=== PATIENT | male | born 1980 | race Caucasian/White ===

== ENCOUNTER 2018-07-22 13:58 | Emergency (ER) | payer SELFPAY ==
[2018-07-22] MEDS ORDERED: ONDANSETRON 4 MG/2 ML VIAL ONE (14:24)
[2018-07-22] MEDS ORDERED: NA CHLORIDE 0.9% 1,000 ML ONE (14:24)
[2018-07-22] MEDS ORDERED: PROMETHAZINE 25 MG/ML VIAL ONE (14:24)
[2018-07-22] MEDS ORDERED: FAMOTIDINE 20 MG/2 ML VIAL IV ONE (14:45)
[2018-07-22] MEDS ORDERED: METOCLOPRAMIDE 10 MG/2mL INJ ONE (14:52)
--- NOTE | 2018-07-22 14:56 | RAD REPORT ---
EXAM DESCRIPTION: CT - Head Brain Wo Cont - 07/22/2018 2:29 pm CLINICAL HISTORY: Headache, numbness and tingling, blurred vision COMPARISON: None. TECHNIQUE: Axial 5 mm thick images of the head were obtained without IV contrast. All CT scans are performed using dose optimization technique as appropriate and may include automated exposure control or mA/KV adjustment according to patient size. FINDINGS: Approximately 3 centimeter partially calcified midline mass is present along the cribrifor m plate. No acute infarction changes seen. There is a significant edema pattern in the bilateral sub frontal lobe white matter. Edema signal extends posteriorly towards the cavernous sinus and suprasell ar region midline and right. There is generalized mass effect on the basilar cisterns. Bal matter - white matter is generally preserved though the brain generally has a edematous appearance. No ventric ulomegaly. No acute hemorrhage. No midline shift. Mastoid air cells and visualized portions of the paranasal sinuses are clear. No bone destructive changes seen. IMPRESSION: There is a 3 centimeter partially calcified mass along the cribriform plate. 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 A more aggressive process is not excluded. There is significant edema in the subfrontal white matter with edema and mass effect extending to the cavernous sinus and suprasellar region. Overall mild edema appearance to the brain parenchyma with poorly defined basilar cisterns.
[2018-07-22] MEDS ORDERED: DEXAMETHASONE 10 MG/ML VIAL ONE (15:09)
[2018-07-22] MEDS ORDERED: FENTANYL CITR 100 MCG/2 ML ONE (15:10)
[2018-07-22 15:24] LABS: Protime INR 0.97
--- NOTE | 2018-07-22 15:39 | EDPHYS ---
Physician Documentation [facility] Name: Sammy Ibarra Age: 37 yrs Sex: Male : 1980 Arrival Date: 07/22/2018 Time: 14:07 Bed 26 Private MD: ED Physician Arik Yang HPI: 07/22 14:15 This 37 yrs old Male presents to ER via EMS with complaints of Headache. cp 14:15 The patient complains of pain to the top of head and forehead. The patient describes cp the headache as waxing and waning. Onset: The symptoms/episode began/occurred this morning, at 10:00. 14:15 Associated signs and symptoms: Pertinent positives: paresthesias, blurred vision, cp Pertinent negatives: altered mental status, fever, neck stiffness, vision loss, weakness. Severity of symptoms: in the emergency department the pain has improved, mildly. 14:15 Headache History: Denies prior headaches. cp Historical: - Allergies: 14:12 No Known Allergies; kr2 - Home Meds: 14:12 None [Active]; kr2 - PMHx: 14:12 None; kr2 - PSHx: 14:12 None; kr2 - Immunization history:: Adult Immunizations unknown. - Social history:: Smoking status: Patient uses tobacco products, denies chronic smoking, but will smoke occasionally. - Ebola Screening: : No symptoms or risks identified at this time. ROS: 14:20 Constitutional: Negative for body aches, chills, fever, poor PO intake. cp 14:20 ENT: Negative for injury, pain, and discharge. cp 14:20 Eyes: Positive for blurry vision, Negative for pain, vision loss. 14:20 Neck: Negative for pain with movement, pain at rest, stiffness, swollen nodes. 14:20 Cardiovascular: Negative for chest pain, palpitations. 14:20 Respiratory: Negative for cough, shortness of breath, wheezing. 14:20 Abdomen/GI: Positive for nausea, vomiting, Negative for abdominal pain, diarrhea, constipation, black/tarry stool, rectal bleeding. 14:20 : Negative for urinary symptoms, difficulty urinating, bladder incontinence. 14:20 Skin: Negative for cellulitis, rash. 14:20 Neuro: Positive for headache, numbness, of the right arm and right leg, Negative for altered mental status, gait disturbance, seizure activity, weakness. 14:20 All other systems are negative. Exam: 14:25 Constitutional: The patient appears in no acute distress, alert, awake, cp non-diaphoretic, well developed, well nourished, uncomfortable. 14:25 Head/Face: Normocephalic, atraumatic. Eyes: Pupils equal round and reactive to light, cp extra-ocular motions intact. Lids and lashes normal. Conjunctiva and sclera are non-icteric and not injected. Cornea within normal limits. Periorbital areas with no swelling, redness, or edema. ENT: Nares patent. No nasal discharge, no septal abnormalities noted. Tympanic membranes are normal and external auditory canals are clear. Oropharynx with no redness, swelling, or masses, exudates, or evidence of obstruction, uvula midline. Mucous membranes moist. Neck: Trachea midline, no thyromegaly or masses palpated, and no cervical lymphadenopathy. Supple, full range of motion without nuchal rigidity, or vertebral point tenderness. No Meningismus. Chest/axilla: Normal chest wall appearance and motion. Nontender with no deformity. No lesions are appreciated. 14:25 Cardiovascular: Rate: bradycardic, Rhythm: regular, Pulses: Pulses are 2+ in right radial artery and left radial artery. Heart sounds: murmur, not appreciated, rub, not appreciated, gallop, not appreciated, Edema: is not appreciated, JVD: is not appreciated. 14:25 Respiratory: the patient does not display signs of respiratory distress, Respirations: normal, no use of accessory muscles, no retractions, no splinting, no tachypnea, labored breathing, is not present, Breath sounds: are clear throughout, no decreased breath sounds, no stridor, no wheezing. 14:25 Abdomen/GI: Inspection: abdomen appears normal, Palpation: abdomen is soft and non-tender, in all quadrants, rebound tenderness, is not appreciated, voluntary guarding, is not appreciated, involuntary guarding, is not appreciated. 14:25 Back: pain, is absent, ROM is 14:25 Skin: cellulitis, is not appreciated, no rash present. 14:25 Neuro: Orientation: to person, place \T\ time. Mentation: lucid, able to follow commands, Cerebellar function: Romberg testing is negative, normal finger to nose testing, Motor: moves all fours, strength is normal, Sensation: no obvious gross deficits. 15:00 ECG was reviewed by the Attending Physician. Vital Signs: 14:05 BP 117 / 71; Pulse 56; Resp 16; Temp 97.8; Pulse Ox 100% on R/A; Weight 86.18 kg; kr2 Height 5 ft. 8 in. (172.72 cm); Pain 6/10; 15:18 BP 117 / 62; Pulse 59; Resp 20; Pulse Ox 100% on R/A; kr2 16:19 BP 102 / 57; Pulse 60; Resp 16; Pulse Ox 99% on R/A; kr2 17:40 BP 120 / 79; Pulse 60; Resp 17; Pulse Ox 98% on R/A; kr2 14:05 Body Mass Index 28.89 (86.18 kg, 172.72 cm) kr2 MDM: 14:10 Patient medically screened. cp 15:35 ED course: Accepted for transfer to [facility] by Dr. Ken. . rn 15:37 Differential diagnosis: cerebral abscess, cluster headache, hypertensive headache, rn intracerebral hemorrhage, migraine, neoplasm, tension headache, vasomotor headache. Data reviewed: vital signs, nurses notes, lab test result(s), radiologic studies, CT scan, and as a result, I will admit patient. Counseling: I had a detailed discussion with the patient and/or guardian regarding: the historical points, exam findings, and any diagnostic results supporting the discharge/admit diagnosis, radiology results, the need to transfer to another facility, for higher level of care, [facility] does not immediately have the required specialist. 07/22 14:09 Order name: Basic Metabolic Panel; Complete Time: 16:29 cp 07/22 16:30 Interpretation: Normal except: NA 135; GLUC 116; CA 8.3. cp 07/22 14:09 Order name: CBC with Diff; Complete Time: 16:29 07/22 16:30 Interpretation: Normal except: WBC 13.5; ANDERSON% 83.4; LYM% 11.9; NEUT A 11.3. cp 07/22 14:09 Order name: Ckmb; Complete Time: 16:29 cp 07/22 14:09 Order name: CPK; Complete Time: 16:29 cp 07/22 14:09 Order name: LFT's; Complete Time: 16:29 cp 07/22 16:30 Interpretation: Reviewed. 07/22 14:09 Order name: Magnesium; Complete Time: 16:29 cp 07/22 16:31 Interpretation: MG 1.9; Reviewed. 07/22 14:09 Order name: PT-INR; Complete Time: 15:36 cp 07/22 14:09 Order name: Ptt, Activated; Complete Time: 15:36 cp 07/22 14:09 Order name: Troponin (emerg Dept Use Only); Complete Time: 16:29 cp 07/22 16:30 Interpretation: TROPED 0.03; Reviewed. 07/22 14:09 Order name: CT Head Brain wo Cont; Complete Time: 15:03 cp 07/22 15:25 Order name: Glucose, Ancillary Testing; Complete Time: 15:28 EDMS 07/22 14:09 Order name: EKG; Complete Time: 14:10 cp 07/22 14:09 Order name: Cardiac monitoring; Complete Time: 14:29 cp 07/22 14:09 Order name: EKG - Nurse/Tech; Complete Time: 17:46 cp 07/22 14:09 Order name: IV Saline Lock; Complete Time: 14:29 cp 07/22 14:09 Order name: Labs collected and sent; Complete Time: 14:29 cp 07/22 14:09 Order name: O2 Per Protocol; Complete Time: 14:29 cp 07/22 14:09 Order name: O2 Sat Monitoring; Complete Time: 14:30 cp 07/22 14:09 Order name: Urine Dipstick-Ancillary (obtain specimen); Complete Time: 17:45 07/22 15:20 Order name: Labs - recollect needed; Complete Time: 15:21 bd EC:00 Rate is 56 beats/min. Rhythm is regular. WA interval is normal. QRS interval is normal. cp QT interval is normal. T waves are Flattened in lead aVF. Interpreted by me. Reviewed by me. Administered Medications: 14:20 Drug: NS 0.9% 1000 ml Route: IV; Rate: 1 bolus; Site: right antecubital; kr2 16:18 Follow up: Response: No adverse reaction; IV Status: Completed infusion kr2 14:24 Drug: Zofran 4 mg Route: IVP; Site: right antecubital; kr2 15:38 Follow up: Response: No adverse reaction; Nausea is decreased; Vomiting decreased kr2 14:24 Drug: Phenergan 25 mg Route: IVP; Site: right antecubital; kr2 15:38 Follow up: Response: No adverse reaction; Nausea is decreased; Vomiting decreased kr2 14:45 Drug: Pepcid 20 mg Route: IVP; Site: right antecubital; kr2 15:38 Follow up: Response: No adverse reaction; Nausea is decreased; Vomiting decreased kr2 15:12 Drug: Dexamethasone 10 mg Route: IVP; Site: right antecubital; kr2 15:30 Follow up: Response: No adverse reaction kr2 15:12 Drug: fentaNYL (PF) 25 mcg Route: IVP; Site: right antecubital; kr2 15:30 Follow up: Response: No adverse reaction; Pain is decreased kr2 16:00 Drug: Keppra 1000 mg Route: IV; Rate: calculated rate; Site: right antecubital; kr2 16:17 Follow up: Response: No adverse reaction; IV Status: Completed infusion kr2 17:38 Drug: fentaNYL (PF) 25 mcg Route: IVP; Site: right antecubital; kr2 17:44 Follow up: Response: No adverse reaction; Pain is decreased kr2 Point of Care Testing: Blood Glucose: 15:00 Blood Glucose: 98 mg/dL; kr2 Ranges: Critical Glucose Levels:Adult <50 mg/dl or >400 mg/dl <40 mg/dl or >180 mg/dl Disposition: 17:52 Co-signature as Attending Physician, Arik Yang MD. rn Disposition: 07/22/18 15:38 Transfer ordered to [facility]. Diagnosis are Unspecified brain mass, Headache, Paresthesia of skin. - Reason for transfer: Higher level of care. - Accepting physician is Dr. Ken. - Condition is Stable. - Problem is new. - Symptoms have improved. Signatures: Dispatcher [employer] EDMS Alisson Proctor Roman, MD MD rn Page, Corey, PA PA cp Reaves, Karey, RN RN kr2 Corrections: (The following items were deleted from the chart) 16:30 16:30 Normal except: NA 135; GLUC 116. cp cp 17:47 15:38 07/22/2018 15:38 Transfer ordered to [facility]. Diagnosis is kr2 Unspecified brain mass; Headache; Paresthesia of skin. Reason for transfer: Higher level of care. Accepting physician is Dr. Ken. Condition is Stable. Problem is new. Symptoms have improved. rn
--- NOTE | 2018-07-22 15:39 | ER ---
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 Reports this has happened before, approximately 2 months ago. Transition of care: patient was not received from another setting of care. Onset of symptoms was July 22, 2018 at 10:00. Risk Assessment: Do you want to hurt yourself or someone else? Patient reports no desire to harm self or others. Initial Sepsis Screen: Does the patient meet any 2 criteria? No. Patient's initial sepsis screen is negative. Does the patient have a suspected source of infection? No. Patient's initial sepsis screen is negative. Care prior to arrival: None. 14:08 Method Of Arrival: EMS: [facility] kr2 14:08 Acuity: MARCELLA 3 kr2 Triage Assessment: 14:12 Headache History: The patient has had previous headaches and this one is similar to kr2 previous episodes. General: Appears in no apparent distress. comfortable, well developed, well nourished, Behavior is calm, cooperative, appropriate for age. Pain: Complains of pain in entire head Pain currently is 6 out of 10 on a pain scale. Quality of pain is described as aching, Pain began 1000 today Is continuous, Alleviated by nothing. Aggravated by increased activity, Also complains of nausea. EENT: Nares are clear bilaterally Oral mucosa is moist. Neuro: Level of Consciousness is awake, alert, obeys commands, Oriented to person, place, time, situation, Appropriate for age Health Care Coach are equal bilaterally Moves all extremities. Gait is steady, Speech is normal, Facial symmetry appears normal, Pupils are PERRLA, Intact Reports Episodes of paresthesias and right sided weakness with headache. Cardiovascular: Capillary refill < 3 seconds in bilateral fingers Rhythm is sinus rhythm. Respiratory: Airway is patent Respiratory effort is even, unlabored, Respiratory pattern is regular, symmetrical, Breath sounds are clear bilaterally. GI: Abdomen is flat, non-distended, Bowel sounds present X 4 quads. Reports nausea, vomiting. : Denies burning with urination. Derm: Skin is intact, is healthy with good turgor, Skin is clammy, Skin is pale, Skin temperature is warm. Musculoskeletal: Circulation, motion, and sensation intact. Historical: - Allergies: 14:12 No Known Allergies; kr2 - Home Meds: 14:12 None [Active]; kr2 - PMHx: 14:12 None; kr2 - PSHx: 14:12 None; kr2 - Immunization history:: Adult Immunizations unknown. - Social history:: Smoking status: Patient uses tobacco products, denies chronic smoking, but will smoke occasionally. - Ebola Screening: : No symptoms or risks identified at this time. Screenin:26 Abuse screen: Denies threats or abuse. Denies injuries from another. Nutritional kr2 screening: No deficits noted. Tuberculosis screening: No symptoms or risk factors identified. Fall Risk None identified. Assessment: 14:08 General: See triage assessment. Pain: Complains of pain in See triage assessment. kr2 15:19 Reassessment: Patient appears in no apparent distress at this time. Patient and/or kr2 family updated on plan of care and expected duration. Pain level reassessed. Patient is alert, oriented x 3, equal unlabored respirations, skin warm/dry/pink. Patient's mother and coworker at bedside Patient states feeling better. 16:18 Reassessment: Patient appears in no apparent distress at this time. Patient and/or kr2 family updated on plan of care and expected duration. Pain level reassessed. Patient is alert, oriented x 3, equal unlabored respirations, skin warm/dry/pink. Patient states feeling better. Patient states symptoms have improved. 16:40 Reassessment: Report called [facility] kr[facility]. 17:39 Reassessment: Patient appears in no apparent distress at this time. Patient and/or kr2 family updated on plan of care and expected duration. Pain level reassessed. Patient is alert, oriented x 3, equal unlabored respirations, skin warm/dry/pink. Patient complains of headache pain 6/10. Given Fentanyl as ordered, see MAR. Report given to [facility] for transport to receiving facility. Vital Signs: 14:05 BP 117 / 71; Pulse 56; Resp 16; Temp 97.8; Pulse Ox 100% on R/A; Weight 86.18 kg; kr2 Height 5 ft. 8 in. (172.72 cm); Pain 6/10; 15:18 BP 117 / 62; Pulse 59; Resp 20; Pulse Ox 100% on R/A; kr2 16:19 BP 102 / 57; Pulse 60; Resp 16; Pulse Ox 99% on R/A; kr2 17:40 BP 120 / 79; Pulse 60; Resp 17; Pulse Ox 98% on R/A; kr2 14:05 Body Mass Index 28.89 (86.18 kg, 172.72 cm) kr2 ED Course: 14:07 Patient arrived in ED. kr2 14:08 Erasto Vasquez PA is PHCP. cp 14:08 Arik Yang MD is Attending Physician. cp 14:08 Arm band placed on right wrist. kr2 14:08 Patient has correct armband on for positive identification. Bed in low position. Call kr2 light in reach. Side rails up X2. Adult w/ patient. accredited farm manager on. Pulse ox on. NIBP on. Lights dimmed. Head of bed elevated. 14:11 Triage completed. kr2 14:24 Abida Black, RN is Primary Nurse. kr2 14:30 CT Head Brain wo Cont In Process Unspecified. EDMS 14:59 EKG done, by vascular ultrasound technician. reviewed by Erasto VYAS. sm3 15:10 Inserted saline lock: 20 gauge in right antecubital area, using aseptic technique. kr2 Blood collected. 17:42 No provider procedures requiring assistance completed. Patient transferred, IV remains kr2 in place. Administered Medications: 14:20 Drug: NS 0.9% 1000 ml Route: IV; Rate: 1 bolus; Site: right antecubital; kr2 16:18 Follow up: Response: No adverse reaction; IV Status: Completed infusion kr2 14:24 Drug: Zofran 4 mg Route: IVP; Site: right antecubital; kr2 15:38 Follow up: Response: No adverse reaction; Nausea is decreased; Vomiting decreased kr2 14:24 Drug: Phenergan 25 mg Route: IVP; Site: right antecubital; kr2 15:38 Follow up: Response: No adverse reaction; Nausea is decreased; Vomiting decreased kr2 14:45 Drug: Pepcid 20 mg Route: IVP; Site: right antecubital; kr2 15:38 Follow up: Response: No adverse reaction; Nausea is decreased; Vomiting decreased kr2 15:12 Drug: Dexamethasone 10 mg Route: IVP; Site: right antecubital; kr2 15:30 Follow up: Response: No adverse reaction kr2 15:12 Drug: fentaNYL (PF) 25 mcg Route: IVP; Site: right antecubital; kr2 15:30 Follow up: Response: No adverse reaction; Pain is decreased kr2 16:00 Drug: Keppra 1000 mg Route: IV; Rate: calculated rate; Site: right antecubital; kr2 16:17 Follow up: Response: No adverse reaction; IV Status: Completed infusion kr2 17:38 Drug: fentaNYL (PF) 25 mcg Route: IVP; Site: right antecubital; kr2 17:44 Follow up: Response: No adverse reaction; Pain is decreased kr2 Point of Care Testing: Blood Glucose: 15:00 Blood Glucose: 98 mg/dL; kr2 Ranges: Outcome: 15:38 ER care complete, transfer ordered by . rn 17:42 Transferred by ground EMS to [facility], Transfer form completed. kr2 17:42 Condition: stable 17:42 Instructed on the need for transfer, Demonstrated understanding of instructions. 17:47 Patient left the ED. kr2 Signatures: Dispatcher [employer] EDMS Arik Yang MD MD rn Page, Corey, PA PA cp Reaves, Karey, RN RN kr2 Aileen Rubio 3 Corrections: (The following items were deleted from the chart) 15:20 15:19 Reassessment: Patient appears in no apparent distress at this time. Patient kr2 and/or family updated on plan of care and expected duration. Pain level reassessed. Patient is alert, oriented x 3, equal unlabored respirations, skin warm/dry/pink. Patient states feeling better. kr2 16:15 16:14 Keppra 1000 mg IV at calculated rate in right antecubital kr2 kr2
[2018-07-22] MEDS ORDERED: levETIRAcetam 1,000 MG in NA CHLORIDE 0.9% 100 ML IV ONE (15:45)
[2018-07-22 15:46] LABS: Absolute Lymphocytes (CBC) 1.6 K/uL (0.7-4.9); Absolute Monocytes 0.6 K/uL (0.1-1.3); Absolute Neutrophil 11.3 K/uL (1.8-8.0); Basophils % 0.1 % (0-1.3); Eosinophils % 0.2 % (0-4.4); Lymphocytes % 11.9 % (15.3-44.8); MCH 30.4 pg (27.0-35.0); MPV 8.1 fL (7.6-11.3); Monocytes % 4.4 % (3.3-12.3); RBC Red Blood Cell Count 4.78 M/uL (4.33-5.43)
[2018-07-22 16:28] LABS: ALT/SGPT 26 U/L (12-78); AST/SGOT 15 U/L (15-37); Albumin 3.8 g/dL (3.4-5.0); Alkaline Phosphatase 61 U/L (45-117); BUN Blood Urea Nitrogen 13 mg/dL (7-18); Bicarbonate 27 mmol/L (21-32); Bilirubin Direct 0.1 mg/dL (0-0.2); Bilirubin Total 0.3 mg/dL (0.2-1.0); CKMB Creatine Kinase MB < 1.0 ng/mL (0.3-3.6); Creatine Phosphokinase 107 U/L (39-308); Glucose Level 116 mg/dL (74-106); Magnesium 1.9 mg/dL (1.8-2.4); Potassium 3.7 mmol/L (3.5-5.1); Protein, Total 7.1 g/dL (6.4-8.2); Sodium Level 135 mmol/L (136-145)
--- NOTE | 2018-07-23 07:22 | EKG ---
Test Date: 2018-07-22 Test Time: 14:50:25 Title Searcher: ALANNA MEASUREMENT RESULTS: Intervals: Rate: 56 MI: 118 QRSD: 88 QT: 460 QTc: 443 [place]: P: 7 MI: 118 QRS: 8 T: -1 INTERPRETIVE STATEMENTS: Sinus bradycardia Otherwise normal ECG No previous ECG available for comparison Electronically Signed On 07-23-18 07:21:16 CDT by Sabino Prasad
== END 2018-07-22 17:47 | disposition short-term general hospital (02) ==
LOC: ER 13:58
DX: G93.9 Disorder of brain, unspecified (principal); R20.2 Paresthesia of skin; Z72.0 Tobacco use
CPT/HCPCS: 36415; 70450; 80048; 80076; 82550; 82553; 82962; 83735; 84484; 85025; 85610; 85730; 93005; 96361; 96365; 96375; 99285; J1100; J1953; J2405; J2550; J2765; J3010; J7030

== ENCOUNTER 2022-02-05 14:50 | Emergency (ER) | payer SELFPAY ==
--- OUTSIDE RECORDS SUMMARY | 2022-02-05 14:54 | XMS REPORT | Continuity of Care Document ---
:1980 Author Organization [facility] t Address [address] [place] [address] Care Team Providers Name Role Phone CARRI BERGER Attending Clinician Unavailable GENESIS BERGER Admitting Clinician Unavailable Problems This patient has no known problems. Allergies, Adverse Reactions, Alerts This patient has no known allergies or adverse reactions. Medications This patient has no known medications. Procedures This patient has no known procedures. Results Test Description Test Time Test Comments Results Result [facility] e Comments MR, BRAIN, WITH 2019-01-16 FINAL REPORT PATIENT ID: 14:30:00 [id number] MRI Brain with and without contrast Clinical History: meningioma Technique: MRI of the brain utilizing axial T1, T2, FLAIR, GRE, DWI, sagittal T1; and postgadolinium axial, sagittal, and coronal T1-weighted images. 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 Focal bilateral anterior inferior frontal lobe encephalomalacia is seen, with resolution of previous fluid and blood products. Previous prominent bifrontal vasogenic edema has resolved. There is no evidence for acute infarct or hemorrhage. There is no hydrocephalus or midline shift. There are no extra-axial fluid collections. The major intracranial flow-voids appear patent. IMPRESSION: Since 08/01/2018, no residual or recurrent neoplasm. Resolution of previous vasogenic edema and post surgical changes. Signed: Siva Dumont MDReport Verified Date/Time: 01/16/2019 14:30:21 Reading Location: [facility] C0[facility] Neuro Reading Room T-LATENCY 2018-08-08 Reason for INTRAOPERATIVE MONITORING SPE, ALL LIMBS 14:25:00 exam:->Brain REPORT Patient Name: Sammy Bang [facility] Surgery Date: 07/31/2018 [place] S/N: [id number] Monitoring began at 08:46 and ended at 15:46 Surgeon: Dc Larsen MD Examining Neurologist: Beck Rodríguez M.D., Samantha Huynh M.D., Chintan Zee M.D. Monitoring Technologist: WILL Flores Procedure: Craniotomy for Meningioma Stimulation Parameters: Median nerves individually stimulated at the wristRate 4.7Hz, Intensity 45 mA, Duration 0.3msPosterior Tibial nerves individually stimulated at the ankleRate 4.7Hz, Intensity 66 mA, Duration 0.3msFilters 30-500Hz, Notch OffMotor strip stimulated anterior to C3 and C4 with alternating polaritiesIntensity 100-500V, Train Number 9, MODE 2-3msFilters 30-2KHz, Notch Off Recording Parameters: CV, CP3, CP4, CPz, and FPz,Transcranial electrical Motor Evoked Potentials recorded from Abductor Pollicis Brevis, Tibialis Anterior and theAdductor Hallucis muscle groups Description : Intraoperative neurophysiological monitoring was performed using a combination of upper and lowerextremity somatosensory evoked potentials (SSEP) and transcranial electrical motor evoked potentials (TceMEP). Aconnection with an examining neurologist was established and maintained throughout the operative procedure by themonitoring technologist. Upper and lower extremity somatosensory evoked potentials were recorded at the subcorticaland cortical levels following median nerve stimulation at the wrist and tibial nerve stimulation at the ankle. All SSEPswere well formed at baselines. TceMEPs were recorded peripherally from the upper and lower extremities followingalternating polarity motor strip stimulation. Upper and lower TcMEPs were clear and reproducible from the beginningof the surgical procedure. Surgeon was informed and acknowledged all changes.At closing, the SSEP waveforms and the TceMEP responses remained consistent with baseline signals. Surgeon wasnotified and acknowledged. Conclusion : These results suggest the absence of untoward, secondary effects on the posterior and anterior columnfunction as a consequence of this surgical procedure. The Surgeon andSupervising Neurophysiologists were notified and acknowledged these findings. Beck Rodríguez M.D., Samantha Huynh M.D., Chintan Zee M.D.D32.9 UE EXAM 2018-08-07 Surgical Pathology Report 13:51:00 Case: [id number] Authorizing Provider: Dc Larsen MD Collected: 07/31/2018 1131 Ordering Location: [facility] PERIOPERATIVE Received: 07/31/2018 1135 SERVICES Pathologist: Marcelo Gordon MD Specimens: A) - Brain, Right, Brain Tumor B) - Brain, Right, Brain Tumor A. BRAIN, CRANIOTOMY - MENINGIOMA, MENINGOTHELIAL (WHO 2016 GRADE I)B.BRAIN, CRANIOTOMY - MENINGIOMA, MENINGOTHELIAL (WHO 2016 GRADE I) Signing Pathologist Direct Phone Line: [phone] y signed by Marcelo Gordon MD on 08/07/2018 at 1:51 PMPreliminary result electronically signed by Tom Berger MD on 08/05/2018 at 1:26 PMNo atypical features are present in either of the two specimens. The MIB-1 proliferation index is variable, but overall is 2.4%.[id number] in tumorA. Brain; B. Right brain tumorA. Received is a 4 mm fragment of mackey costa tissue. Intraoperative cytological and cryostat preparations are made. Tissue is submitted in A1 and A2.B. The specimen is received and consists of multiple ragged fragments of red soft tissue ranging from 0.2 to 1.2 cm. Submitted entirely B1 .CG/pl BRAIN, CRANIOTOMY - TP1: MENINGIOMA FS1 MENINGIOMA REPORTED BY DR. ZOYA BERGER TO ROOM 12 AT 11:44 AMA. Intraoperative cytological imprints show exfoliation of cohesive whorls and sheets of meningothelial cells, so of which has intranuclear cytoplasmic inclusions. No atypical features are seen. Ki67 is performed on A1.B. 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 No atypical features are seen.The following special studies were performed on this case and the interpretation is incorporated in the diagnostic report above:Ki67: pending - to be released in Final ReportThe immunohistochemistry test was developed and its performance characteristics determined by [facility]ology [facility]. It has not been cleared or approved by the U.S. Food and Drug Administration. The FDA has determined that such clearance or approval is not necessary. The test is used for clinical purposes. It should not be regarded as investigational or for research. This laboratory is certified under the Clinical Laboratory Improvement Amendments of 1988 (CLIA-88) as qualified to perform high complexity clinical laboratory testing. CBC W/PLT COUNT & AUTO DIFFERENTIAL 2018-08-02 11:16:00 Test Item Value Reference Range Interpretation Comme nts WHITE BLOOD CELL COUNT (BEAKER) (test code = 775) 17.7 K/ L 3.5- 10.5 H RED BLOOD CELL COUNT (BEAKER) (test code = 761) 4.75 M/ L 4.63-6 .08 HEMOGLOBIN (BEAKER) (test code = 410) 14.3 GM/DL 13.7-17.5 HEMATOCRIT (BEAKER) (test code = 411) 43.0 % 40.1-51.0 MEAN CORPUSCULAR VOLUME (BEAKER) (test code = 753) 90.5 fL 79. 0-92.2 MEAN CORPUSCULAR HEMOGLOBIN (BEAKER) (test code = 751) 30.1 pg 25.7-32.2 MEAN CORPUSCULAR HEMOGLOBIN CONC (BEAKER) (test code = 752) 33.3 GM/DL 32.3-36.5 RED CELL DISTRIBUTION WIDTH (BEAKER) (test code = 412) 12.3 % 11.6-14.4 PLATELET COUNT (BEAKER) (test code = 756) 296 K/CU MM 150-450 MEAN PLATELET VOLUME (BEAKER) (test code = 754) 9.3 fL 9.4-12 .4 L NUCLEATED RED BLOOD CELLS (BEAKER) (test code = 413) 0 /100 WBC 0 -0 [id number] 09:24:00 Test Item Value Reference Range Interpretation Comments SODIUM (BEAKER) (test code = 381) 135 meq/L 136-145 L (CELLAVISION MANUAL DIFF)2018-08-02 07:39:00 Test Item Value Reference Range Interpretation Comments NEUTROPHILS - REL 79 % (CELLAVISION)(BEAKER) (test code = 2816) LYMPHOCYTES - REL 6 % (CELLAVISION)(BEAKER) (test code = 2817) MONOCYTES - REL 6 % (CELLAVISION)(BEAKER) (test code = 2818) METAMYELOCYTES - REL 3 % 0-0 H (CELLAVISION)(BEAKER) (test code = 2821) MYELOCYTES - REL 4 % 0-0 H (CELLAVISION)(BEAKER) (test code = 2822) BANDS - REL (CELLAVISION)(BEAKER) 2 % 0-10 (test code = 2826) NEUTROPHILS - ABS 13.98 K/ul 1.78-5.38 H (CELLAVISION)(BEAKER) (test code = 2830) LYMPHOCYTES - ABS 1.06 K/ul 1.32-3.57 L (CELLAVISION)(BEAKER) (test code = 2831) MONOCYTES - ABS 1.06 K/uL 0.30-0.82 H (CELLAVISION)(BEAKER) (test code = 2832) METAMYELOCYTES - ABS 0.53 K/uL 0.00-0.00 H (CELLAVISION)(BEAKER) (test code = 2836) MYELOCYTES-ABS 0.71 K/uL 0.00-0.00 H (CELLAVISION)(BEAKER) (test code = 2837) BANDS - ABS (CELLAVISION)(BEAKER) 0.35 K/uL 0.00-0.80 (test code = 2840) TOTAL COUNTED (BEAKER) (test code 100 = 1351) RBC MORPHOLOGY (BEAKER) (test code Normal = 762) PLT MORPHOLOGY (BEAKER) (test code Normal = 486) SMUDGE CELLS (BEAKER) (test code = Present 1371) ARTIFACT (CELLAVISION)(BEAKER) Present (test code = 3432) PLATELET CONCENTRATION Adequate (CELLAVISION)(BEAKER) (test code = 3438) Received comment: User comments: Slide comments:BASIC METABOLIC [id number] 05:52:00 Test Item Value Reference Range Interpretation Comments SODIUM (BEAKER) 134 meq/L 136-145 L (test code = 381) POTASSIUM (BEAKER) 4.7 meq/L 3.5-5.1 Specimen slightly (test code = 379) hemolyzed CHLORIDE (BEAKER) 98 meq/L 98-107 (test code = 382) CO2 (BEAKER) (test 28 meq/L 22-29 code = 355) BLOOD UREA NITROGEN 20 mg/dL 7-21 (BEAKER) (test code = 354) CREATININE (BEAKER) 0.76 mg/dL 0.57-1.25 Specimen slightly (test code = 358) hemolyzed GLUCOSE RANDOM 130 mg/dL 70-105 H (BEAKER) (test code = 652) CALCIUM (BEAKER) 8.5 mg/dL 8.4-10.2 (test code = 697) EGFR (BEAKER) (test 117 mL/min/1.73 ESTIM ATED GFR IS code = 1092) sq m NOT ACCURATE CREATININE CLEARANCE IN PREDICTING GLOMERULAR FILTRATION RATE . ESTIMATED GFR I S NOT APPLICABLE FOR DIALYSIS PATIEN TS. POCT-GLUCOSE [id number] 18:00:00 Test Item Value Reference Range Interpretation Comments POC-GLUCOSE METER 103 mg/dL 70-110 TESTED AT [place] [address] ([facility]) (test code = REJI Ibarra [facility] 1538) [id number] POCT-GLUCOSE [id number] 13:04:00 Test Item Value Reference Range Interpretation Comments POC-GLUCOSE METER 74 mg/dL 70-110 TESTED AT [place] [address] ([facility]) (test code = REJI Ibarra [facility] [address] 1538) CBC W/PLT COUNT & AUTO [id number] 07:57:00 Test Item Value Reference Range Interpretation Comments WHITE BLOOD CELL COUNT (BEAKER) 21.9 K/ L 3.5-10.5 H (test code = 775) RED BLOOD CELL COUNT (BEAKER) 4.57 M/ L 4.63-6.08 L (test code = 761) HEMOGLOBIN (BEAKER) (test code = 13.5 GM/DL 13.7-17.5 L 410) HEMATOCRIT (BEAKER) (test code = 41.4 % 40.1-51.0 411) MEAN CORPUSCULAR VOLUME (BEAKER) 90.6 fL 79.0-92.2 (test code = 753) MEAN CORPUSCULAR HEMOGLOBIN 29.5 pg 25.7-32.2 (BEAKER) (test code = 751) MEAN CORPUSCULAR HEMOGLOBIN CONC 32.6 GM/DL 32.3-36.5 (BEAKER) (test code = 752) RED CELL DISTRIBUTION WIDTH 12.4 % 11.6-14.4 (BEAKER) (test code = 412) PLATELET COUNT (BEAKER) (test 305 K/CU MM 150-450 code = 756) MEAN PLATELET VOLUME (BEAKER) 9.1 fL 9.4-12.4 L (test code = 754) NUCLEATED RED BLOOD CELLS 0 /100 WBC 0-0 (BEAKER) (test code = 413) NEUTROPHILS RELATIVE PERCENT 74 % (BEAKER) (test code = 429) LYMPHOCYTES RELATIVE PERCENT 9 % (BEAKER) (test code = 430) MONOCYTES RELATIVE PERCENT 11 % (BEAKER) (test code = 431) EOSINOPHILS RELATIVE PERCENT 0 % (BEAKER) (test code = 432) BASOPHILS RELATIVE PERCENT 0 % (BEAKER) (test code = 437) NEUTROPHILS ABSOLUTE COUNT 16.23 K/ L 1.78-5.38 H (BEAKER) (test code = 670) LYMPHOCYTES ABSOLUTE COUNT 1.87 K/ L 1.32-3.57 (BEAKER) (test code = 414) MONOCYTES ABSOLUTE COUNT (BEAKER) 2.31 K/ L 0.30-0.82 H (test code = 415) EOSINOPHILS ABSOLUTE COUNT 0.00 K/ L 0.04-0.54 L (BEAKER) (test code = 416) BASOPHILS ABSOLUTE COUNT (BEAKER) 0.08 K/ L 0.01-0.08 (test code = 417) IMMATURE GRANULOCYTES-RELATIVE 6 % 0-1 H PERCENT (BEAKER) (test code = 2801) (CELLAVISION MANUAL DIFF)2018-08-01 07:57:00 Test Item Value Reference Range Interpretation Comments TOTAL COUNTED (BEAKER) (test code = 1351) RBC MORPHOLOGY (BEAKER) (test code = Normal 762) WBC MORPHOLOGY (BEAKER) (test code = Normal 487) PLT MORPHOLOGY (BEAKER) (test code = Normal 486) MR, BRAIN, [id number] 05:38:00FINAL REPORT MRI Brain with and without contrast 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 discharge pending MRI Technique: MRI of the brain util izing axial T1, T2, FLAIR, GRE, DWI, sagittal T1; and postgadolinium axial, sagittal, and coronal T1-weighted images. Comparisons: MRI brain, 07/23/2018. 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 Expected postsurgical changes within the surgical bed including fluid, hemorrhage and gas. There is mild residual curvilinear enhancement surrounding the resection bed which is favored be postsurgical however continued attention on follow-upis recommended. Unchanged edema within the bilateral frontal lobes. Improved mass effect on the adjacent parenchyma. Small amount of extra-axial fluid and gas along the craniotomy defect. An seen is the fluid collection underlying the anterior inferior right frontal lobe with mass effect on the optic chiasm, prechiasmatic right optic nerve and bilateral postchiasmatic optic pathways which may represent an arachnoid cyst. Ventricles are normal in size and configuration. No midline shift or mass effect. The craniocervical junction is preserved. The major intracranial flow-voids appear patent. Polypoid mucosal thickening within the left maxillary sinus. Mastoid air cells and middle ears are clear. Intraorbital contents are unremarkable. Subcutaneous soft tissue fluid and gas along the craniotomy defect. 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 Mild residual curvilinear enhancement surrounding the resection bed which is favored be postsurgical however continued attention on follow-up is recommended. Signed: Earl Mello MDReport Verified Date/Time: 08/01/20 05:38:42 Reading Location: [address] Reading Room [id number] 03:38:00 Test Item Value Reference Range Interpretation Comments PHOSPHORUS (BEAKER) (test code = 4.7 mg/dL 2.3-4.7 604) [id number] 03:38:00 Test Item Value Reference Range Interpretation Comments MAGNESIUM (BEAKER) (test code = 2.2 mg/dL 1.6-2.6 627) BASIC METABOLIC [id number] 03:38:00 Test Item Value Reference Range Interpretation Comments SODIUM (BEAKER) 136 meq/L 136-145 (test code = 381) POTASSIUM (BEAKER) 4.3 meq/L 3.5-5.1 (test code = 379) CHLORIDE (BEAKER) 101 meq/L 98-107 (test code = 382) CO2 (BEAKER) (test 28 meq/L 22-29 code = 355) BLOOD UREA NITROGEN 17 mg/dL 7-21 (BEAKER) (test code = 354) CREATININE (BEAKER) 0.73 mg/dL 0.57-1.25 (test code = 358) GLUCOSE RANDOM 96 mg/dL 70-105 (BEAKER) (test code = 652) CALCIUM (BEAKER) 8.0 mg/dL 8.4-10.2 L (test code = 697) EGFR (BEAKER) (test 122 mL/min/1.73 ESTIM ATED GFR IS code = 1092) sq m NOT ACCURATE CREATININE CLEARANCE IN PREDICTING GLOMERULAR FILTRATION RATE . ESTIMATED GFR I S NOT APPLICABLE FOR DIALYSIS PATIEN TS. CBC W/PLT COUNT & AUTO [id number] 13:41:00 Test Item Value Reference Range Interpretation Comments WHITE BLOOD CELL COUNT (BEAKER) 24.4 K/ L 3.5-10.5 H (test code = 775) RED BLOOD CELL COUNT (BEAKER) 4.95 M/ L 4.63-6.08 (test code = 761) HEMOGLOBIN (BEAKER) (test code = 15.1 GM/DL 13.7-17.5 410) HEMATOCRIT (BEAKER) (test code = 45.3 % 40.1-51.0 411) MEAN CORPUSCULAR VOLUME (BEAKER) 91.5 fL 79.0-92.2 (test code = 753) MEAN CORPUSCULAR HEMOGLOBIN 30.5 pg 25.7-32.2 (BEAKER) (test code = 751) MEAN CORPUSCULAR HEMOGLOBIN CONC 33.3 GM/DL 32.3-36.5 (BEAKER) (test code = 752) RED CELL DISTRIBUTION WIDTH 12.3 % 11.6-14.4 (BEAKER) (test code = 412) PLATELET COUNT (BEAKER) (test 333 K/CU MM 150-450 code = 756) MEAN PLATELET VOLUME (BEAKER) 9.4 fL 9.4-12.4 (test code = 754) NUCLEATED RED BLOOD CELLS 0 /100 WBC 0-0 (BEAKER) (test code = 413) (CELLAVISION MANUAL DIFF)2018-07-31 13:41:00 Test Item Value Reference Range Interpretation Comments NEUTROPHILS - REL 85 % (CELLAVISION)(BEAKER) (test code = 2816) LYMPHOCYTES - REL 8 % (CELLAVISION)(BEAKER) (test code = 2817) MONOCYTES - REL 6 % (CELLAVISION)(BEAKER) (test code = 2818) BANDS - REL (CELLAVISION)(BEAKER) 1 % 0-10 (test code = 2826) NEUTROPHILS - ABS 20.74 K/ul 1.78-5.38 H (CELLAVISION)(BEAKER) (test code = 2830) LYMPHOCYTES - ABS 1.95 K/ul 1.32-3.57 (CELLAVISION)(BEAKER) (test code = 2831) MONOCYTES - ABS 1.46 K/uL 0.30-0.82 H (CELLAVISION)(BEAKER) (test code = 2832) BANDS - ABS (CELLAVISION)(BEAKER) 0.24 K/uL 0.00-0.80 (test code = 2840) TOTAL COUNTED (BEAKER) (test code 100 = 1351) WBC MORPHOLOGY (BEAKER) (test code Normal = 487) PLT MORPHOLOGY (BEAKER) (test code Normal = 486) POLYCHROMATOPHILLIC RBCS(BEAKER) 1+ few (test code = 478) ANISOCYTOSIS (BEAKER) (test code = 1+ few 961) ARTIFACT (CELLAVISION)(BEAKER) Present (test code = 3432) PLATELET CONCENTRATION Adequate (CELLAVISION)(BEAKER) (test code = 3438) Received comment: User comments: Slide comments:BASIC METABOLIC [id number] 07:15:00 Test Item Value Reference Range Interpretation Comments SODIUM (BEAKER) 135 meq/L 136-145 L (test code = 381) POTASSIUM (BEAKER) 4.4 meq/L 3.5-5.1 Specimen slightly (test code = 379) hemolyzed CHLORIDE (BEAKER) 100 meq/L 98-107 (test code = 382) CO2 (BEAKER) (test 27 meq/L 22-29 code = 355) BLOOD UREA NITROGEN 20 mg/dL 7-21 (BEAKER) (test code = 354) CREATININE (BEAKER) 0.77 mg/dL 0.57-1.25 Specimen slightly (test code = 358) hemolyzed GLUCOSE RANDOM 111 mg/dL 70-105 H (BEAKER) (test code = 652) CALCIUM (BEAKER) 8.8 mg/dL 8.4-10.2 (test code = 697) EGFR (BEAKER) (test 115 mL/min/1.73 ESTIM ATED GFR IS code = 1092) sq m NOT ACCURATE CREATININE CLEARANCE IN PREDICTING GLOMERULAR FILTRATION RATE . ESTIMATED GFR I S NOT APPLICABLE FOR DIALYSIS PATIEN TS. PROTHROMBIN [id number] 11:56:00 Test Item Value Reference Range Interpretation Comments PROTIME (BEAKER) (test code = 14.1 seconds 11.7-14.7 759) INR (BEAKER) (test code = 370) 1.1 <=5.9 RECOMMENDED COUMADIN/WARFARIN INR THERAPY RANGESSTANDARD DOSE: 2.0 - 3.0 Includes: PROPHYLAXIS forvenous thrombosis, systemic embolization; TREATMENT for venous thrombosis and/or pulmonary embolus.HIGH RISK: Target INR is 2.5-3.5 for patients with mechanical heart valves.CBC W/PLT COUNT & AUTO DIFFERENTIAL 2018-07-30 10:52:00 Test Item Value Reference Range Interpretation Comments WHITE BLOOD CELL COUNT (BEAKER) 23.8 K/ L 3.5-10.5 H (test code = 775) RED BLOOD CELL COUNT (BEAKER) 4.91 M/ L 4.63-6.08 (test code = 761) HEMOGLOBIN (BEAKER) (test code = 14.7 GM/DL 13.7-17.5 410) HEMATOCRIT (BEAKER) (test code = 44.9 % 40.1-51.0 411) MEAN CORPUSCULAR VOLUME (BEAKER) 91.4 fL 79.0-92.2 (test code = 753) MEAN CORPUSCULAR HEMOGLOBIN 29.9 pg 25.7-32.2 (BEAKER) (test code = 751) MEAN CORPUSCULAR HEMOGLOBIN CONC 32.7 GM/DL 32.3-36.5 (BEAKER) (test code = 752) RED CELL DISTRIBUTION WIDTH 12.2 % 11.6-14.4 (BEAKER) (test code = 412) PLATELET COUNT (BEAKER) (test 321 K/CU MM 150-450 code = 756) MEAN PLATELET VOLUME (BEAKER) 9.6 fL 9.4-12.4 (test code = 754) NUCLEATED RED BLOOD CELLS 0 /100 WBC 0-0 (BEAKER) (test code = 413) (CELLAVISION MANUAL DIFF)2018-07-30 10:52:00 Test Item Value Reference Range Interpretation Comments NEUTROPHILS - REL 85 % (CELLAVISION)(BEAKER) (test code = 2816) LYMPHOCYTES - REL 7 % (CELLAVISION)(BEAKER) (test code = 2817) MONOCYTES - REL 4 % (CELLAVISION)(BEAKER) (test code = 2818) BANDS - REL (CELLAVISION)(BEAKER) 2 % 0-10 (test code = 2826) ATYPICAL LYMPHOCYTES - REL 2 % 0-0 H (CELLAVISION)(BEAKER) (test code = 2829) NEUTROPHILS - ABS 20.23 K/ul 1.78-5.38 H (CELLAVISION)(BEAKER) (test code = 2830) LYMPHOCYTES - ABS 1.67 K/ul 1.32-3.57 (CELLAVISION)(BEAKER) (test code = 2831) MONOCYTES - ABS 0.95 K/uL 0.30-0.82 H (CELLAVISION)(BEAKER) (test code = 2832) BANDS - ABS (CELLAVISION)(BEAKER) 0.48 K/uL 0.00-0.80 (test code = 2840) ATYPICAL LYMPHOCYTES - ABS 0.48 K/uL 0.00-0.00 H (CELLAVISION)(BEAKER) (test code = 2858) TOTAL COUNTED (BEAKER) (test code 100 = 1351) RBC MORPHOLOGY (BEAKER) (test code Normal = 762) WBC MORPHOLOGY (BEAKER) (test code Normal = 487) PLT MORPHOLOGY (BEAKER) (test code Normal = 486) ARTIFACT (CELLAVISION)(BEAKER) Present (test code = 3432) PLATELET CONCENTRATION Adequate (CELLAVISION)(BEAKER) (test code = 3438) Received comment: User comments: Slide comments:BASIC METABOLIC [id number] 06:31:00 Test Item Value Reference Range Interpretation Comments SODIUM (BEAKER) 135 meq/L 136-145 L (test code = 381) POTASSIUM (BEAKER) 4.4 meq/L 3.5-5.1 Specimen slightly (test code = 379) hemolyzed CHLORIDE (BEAKER) 100 meq/L 98-107 (test code = 382) CO2 (BEAKER) (test 25 meq/L 22-29 code = 355) BLOOD UREA NITROGEN 17 mg/dL 7-21 (BEAKER) (test code = 354) CREATININE (BEAKER) 0.76 mg/dL 0.57-1.25 Specimen slightly (test code = 358) hemolyzed GLUCOSE RANDOM 115 mg/dL 70-105 H (BEAKER) (test code = 652) CALCIUM (BEAKER) 8.9 mg/dL 8.4-10.2 (test code = 697) EGFR (BEAKER) (test 117 mL/min/1.73 ESTIM ATED GFR IS code = 1092) sq m NOT ACCURATE CREATININE CLEARANCE IN PREDICTING GLOMERULAR FILTRATION RATE . ESTIMATED GFR I S NOT APPLICABLE FOR DIALYSIS PATIEN TS. BASIC METABOLIC [id number] 06:37:00 Test Item Value Reference Range Interpretation Comments SODIUM (BEAKER) 137 meq/L 136-145 (test code = 381) POTASSIUM (BEAKER) 4.3 meq/L 3.5-5.1 (test code = 379) CHLORIDE (BEAKER) 102 meq/L 98-107 (test code = 382) CO2 (BEAKER) (test 26 meq/L - code = 355) BLOOD UREA NITROGEN 20 mg/dL 7-21 (BEAKER) (test code = 354) CREATININE (BEAKER) 0.77 mg/dL 0.57-1.25 (test code = 358) GLUCOSE RANDOM 108 mg/dL 70-105 H (BEAKER) (test code = 652) CALCIUM (BEAKER) 9.5 mg/dL 8.4-10.2 (test code = 697) EGFR (BEAKER) (test 115 mL/min/1.73 ESTIM ATED GFR IS code = 1092) sq m NOT ACCURATE CREATININE CLEARANCE IN PREDICTING GLOMERULAR FILTRATION RATE . ESTIMATED GFR I S NOT APPLICABLE FOR DIALYSIS PATIEN TS. CBC W/PLT COUNT & AUTO [id number] 06:35:00 Test Item Value Reference Range Interpretation Comments WHITE BLOOD CELL COUNT (BEAKER) 21.2 K/ L 3.5-10.5 H (test code = 775) RED BLOOD CELL COUNT (BEAKER) 5.10 M/ L 4.63-6.08 (test code = 761) HEMOGLOBIN (BEAKER) (test code = 15.5 GM/DL 13.7-17.5 410) HEMATOCRIT (BEAKER) (test code = 46.0 % 40.1-51.0 411) MEAN CORPUSCULAR VOLUME (BEAKER) 90.2 fL 79.0-92.2 (test code = 753) MEAN CORPUSCULAR HEMOGLOBIN 30.4 pg 25.7-32.2 (BEAKER) (test code = 751) MEAN CORPUSCULAR HEMOGLOBIN CONC 33.7 GM/DL 32.3-36.5 (BEAKER) (test code = 752) RED CELL DISTRIBUTION WIDTH 11.9 % 11.6-14.4 (BEAKER) (test code = 412) PLATELET COUNT (BEAKER) (test 375 K/CU MM 150-450 code = 756) MEAN PLATELET VOLUME (BEAKER) 9.6 fL 9.4-12.4 (test code = 754) NUCLEATED RED BLOOD CELLS 0 /100 WBC 0-0 (BEAKER) (test code = 413) NEUTROPHILS RELATIVE PERCENT 84 % (BEAKER) (test code = 429) LYMPHOCYTES RELATIVE PERCENT 7 % (BEAKER) (test code = 430) MONOCYTES RELATIVE PERCENT 5 % (BEAKER) (test code = 431) EOSINOPHILS RELATIVE PERCENT 0 % (BEAKER) (test code = 432) BASOPHILS RELATIVE PERCENT 0 % (BEAKER) (test code = 437) NEUTROPHILS ABSOLUTE COUNT 17.72 K/ L 1.78-5.38 H (BEAKER) (test code = 670) LYMPHOCYTES ABSOLUTE COUNT 1.56 K/ L 1.32-3.57 (BEAKER) (test code = 414) MONOCYTES ABSOLUTE COUNT (BEAKER) 1.04 K/ L 0.30-0.82 H (test code = 415) EOSINOPHILS ABSOLUTE COUNT 0.01 K/ L 0.04-0.54 L (BEAKER) (test code = 416) BASOPHILS ABSOLUTE COUNT (BEAKER) 0.09 K/ L 0.01-0.08 H (test code = 417) IMMATURE GRANULOCYTES-RELATIVE 4 % 0-1 H PERCENT (BEAKER) (test code = 2801) [id number] 06:40:00 Test Item Value Reference Range Interpretation Comments PHOSPHORUS (BEAKER) (test code = 3.4 mg/dL 2.3-4.7 604) [id number] 06:40:00 Test Item Value Reference Range Interpretation Comments MAGNESIUM (BEAKER) (test code = 2.1 mg/dL 1.6-2.6 627) BASIC METABOLIC [id number] 06:40:00 Test Item Value Reference Range Interpretation Comments SODIUM (BEAKER) 138 meq/L 136-145 (test code = 381) POTASSIUM (BEAKER) 4.2 meq/L 3.5-5.1 (test code = 379) CHLORIDE (BEAKER) 103 meq/L 98-107 (test code = 382) CO2 (BEAKER) (test 24 meq/L 22-29 code = 355) BLOOD UREA NITROGEN 14 mg/dL 7-21 (BEAKER) (test code = 354) CREATININE (BEAKER) 0.77 mg/dL 0.57-1.25 (test code = 358) GLUCOSE RANDOM 125 mg/dL 70-105 H (BEAKER) (test code = 652) CALCIUM (BEAKER) 9.4 mg/dL 8.4-10.2 (test code = 697) EGFR (BEAKER) (test 115 mL/min/1.73 ESTIM ATED GFR IS code = 1092) sq m NOT ACCURATE CREATININE CLEARANCE IN PREDICTING GLOMERULAR FILTRATION RATE . ESTIMATED GFR I S NOT APPLICABLE FOR DIALYSIS PATIEN TS. HEPATIC FUNCTION [id number] 06:40:00 Test Item Value Reference Range Interpretation Comments TOTAL PROTEIN (BEAKER) (test code = 6.7 gm/dL 6.0-8.3 770) ALBUMIN (BEAKER) (test code = 1145) 3.9 g/dL 3.5-5.0 BILIRUBIN TOTAL (BEAKER) (test code 0.3 mg/dL 0.2-1.2 = 377) BILIRUBIN DIRECT (BEAKER) (test 0.1 mg/dL 0.1-0.5 code = 706) ALKALINE PHOSPHATASE (BEAKER) (test 61 U/L 40-150 code = 346) AST (SGOT) (BEAKER) (test code = 12 U/L 5-34 353) ALT (SGPT) (BEAKER) (test code = 17 U/L 6-55 347) CBC W/PLT COUNT & AUTO [id number] 06:24:00 Test Item Value Reference Range Interpretation Comments WHITE BLOOD CELL COUNT (BEAKER) 18.0 K/ L 3.5-10.5 H (test code = 775) RED BLOOD CELL COUNT (BEAKER) 4.75 M/ L 4.63-6.08 (test code = 761) HEMOGLOBIN (BEAKER) (test code = 14.4 GM/DL 13.7-17.5 410) HEMATOCRIT (BEAKER) (test code = 43.2 % 40.1-51.0 411) MEAN CORPUSCULAR VOLUME (BEAKER) 90.9 fL 79.0-92.2 (test code = 753) MEAN CORPUSCULAR HEMOGLOBIN 30.3 pg 25.7-32.2 (BEAKER) (test code = 751) MEAN CORPUSCULAR HEMOGLOBIN CONC 33.3 GM/DL 32.3-36.5 (BEAKER) (test code = 752) RED CELL DISTRIBUTION WIDTH 11.9 % 11.6-14.4 (BEAKER) (test code = 412) PLATELET COUNT (BEAKER) (test 307 K/CU MM 150-450 code = 756) MEAN PLATELET VOLUME (BEAKER) 9.5 fL 9.4-12.4 (test code = 754) NUCLEATED RED BLOOD CELLS 0 /100 WBC 0-0 (BEAKER) (test code = 413) NEUTROPHILS RELATIVE PERCENT 87 % (BEAKER) (test code = 429) LYMPHOCYTES RELATIVE PERCENT 8 % (BEAKER) (test code = 430) MONOCYTES RELATIVE PERCENT 3 % (BEAKER) (test code = 431) EOSINOPHILS RELATIVE PERCENT 0 % (BEAKER) (test code = 432) BASOPHILS RELATIVE PERCENT 0 % (BEAKER) (test code = 437) NEUTROPHILS ABSOLUTE COUNT 15.73 K/ L 1.78-5.38 H (BEAKER) (test code = 670) LYMPHOCYTES ABSOLUTE COUNT 1.42 K/ L 1.32-3.57 (BEAKER) (test code = 414) MONOCYTES ABSOLUTE COUNT (BEAKER) 0.60 K/ L 0.30-0.82 (test code = 415) EOSINOPHILS ABSOLUTE COUNT 0.00 K/ L 0.04-0.54 L (BEAKER) (test code = 416) BASOPHILS ABSOLUTE COUNT (BEAKER) 0.01 K/ L 0.01-0.08 (test code = 417) IMMATURE GRANULOCYTES-RELATIVE 1 % 0-1 PERCENT (BEAKER) (test code = 2801) [id number] 17:29:00 Test Item Value Reference Range Interpretation Comments PARTIAL THROMBOPLASTIN TIME 25.7 seconds 22.5-36.0 (BEAKER) (test code = 760) PROTHROMBIN TIME/[id number] 17:28:00 Test Item Value Reference Range Interpretation Comments PROTIME (BEAKER) (test code = 13.4 seconds 11.7-14.7 759) INR (BEAKER) (test code = 370) 1.0 <=5.9 RECOMMENDED COUMADIN/WARFARIN INR THERAPY RANGESSTANDARD DOSE: 2.0 - 3.0 Includes: PROPHYLAXIS forvenous thrombosis, systemic embolization; TREATMENT for venous thrombosis and/or pulmonary embolus.HIGH RISK: Target INR is 2.5-3.5 for patients with mechanical heart valves.EEG AWAKE AND [id number] 14:51:00 Reason for exam:->Possible seizureShould this be performed at the bedside?->YesDate(s) of EE07/24/2018 DATE OF REPORT: 07/24/2018 ACC: [id number] EEG Number: [id number] Start time: 12:15 pm Stop time: 12:57 pm ICD-10: R56.9 CPT Code: 72098 HISTORY: 37 year old male admitted for headache and right-sided numbness 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 MEDICATIONSTHAT COULD AFFECT EEG: Dexamethasone, Benadryl TECHNICAL SUMMARY: This is a digital video-EEG recorded with 32 input channels reviewed with bipolar and referential montages using the modified combinatorial system nomenclature. DESCRIPTION OF RECORD: During the maximally alert state, up to a 9 Hz posterior dominant rhythm was seen that was symmetric, reactive to eye opening and well regulated.More anteriorly, low voltage frontocentral beta predominated. Drowsiness was characterized by alpha attenuation and increased frontocentral theta. Stage 2 sleep including symmetric sleep spindles were seen. No seizures were recorded. SIGNIFICANT VIDEO EVENTS: None SIGNIFICANT ELECTROCARDIOGRAM EVENTS: None HV: Hyperventilation was not performed PHOTIC STIMULATION: Photic stimulation was done from 1-33 Hz; no photic driving was seen; photoparoxysmal responses were absent. IMPRESSION: NormalAwake and Asleep EEG. CLINICAL CORRELATION: An EEG without epileptiform discharges does not exclude the possibility of epilepsy. If the clinical suspicion of epilepsy remains, consider additional EEGrecordings. Adeline Turner MD PGY-4 Resident [facility] Neurology Samantha Huynh MD Clinical Neurophysiology Attending MAGNESIUM 2018-07-24 03:01:00 Test Item Value Reference Range Interpretation Comments MAGNESIUM (BEAKER) 2.4 mg/dL 1.6-2.6 Specimen slightly (test code = 627) hemolyzed [id number] 03:01:00 Test Item Value Reference Range Interpretation Comments PHOSPHORUS (BEAKER) 2.1 mg/dL 2.3-4.7 L Specimen slightly (test code = 604) hemolyzed BASIC METABOLIC [id number] 03:01:00 Test Item Value Reference Range Interpretation Comments SODIUM (BEAKER) 137 meq/L 136-145 (test code = 381) POTASSIUM (BEAKER) 4.5 meq/L 3.5-5.1 Specimen slightly (test code = 379) hemolyzed CHLORIDE (BEAKER) 104 meq/L 98-107 (test code = 382) CO2 (BEAKER) (test 25 meq/L 22-29 code = 355) BLOOD UREA NITROGEN 14 mg/dL 7-21 (BEAKER) (test code = 354) CREATININE (BEAKER) 0.79 mg/dL 0.57-1.25 Specimen slightly (test code = 358) hemolyzed GLUCOSE RANDOM 136 mg/dL 70-105 H (BEAKER) (test code = 652) CALCIUM (BEAKER) 9.4 mg/dL 8.4-10.2 (test code = 697) EGFR (BEAKER) (test 112 mL/min/1.73 ESTIM ATED GFR IS code = 1092) sq m NOT ACCURATE CREATININE CLEARANCE IN PREDICTING GLOMERULAR FILTRATION RATE . ESTIMATED GFR I S NOT APPLICABLE FOR DIALYSIS PATIEN TS. HEPATIC FUNCTION [id number] 03:01:00 Test Item Value Reference Range Interpretation Comments TOTAL PROTEIN (BEAKER) 7.0 gm/dL 6.0-8.3 Speci men slightly (test code = 770) hemolyzed ALBUMIN (BEAKER) (test 4.0 g/dL 3.5-5.0 Speci men slightly code = 1145) hemolyzed BILIRUBIN TOTAL 0.2 mg/dL 0.2-1.2 Specimen sli ghtly (BEAKER) (test code = hemoly zed 377) BILIRUBIN DIRECT 0.1 mg/dL 0.1-0.5 Specimen sl ightly (BEAKER) (test code = hemoly zed 706) ALKALINE PHOSPHATASE 66 U/L 40-150 (BEAKER) (test code = 346) AST (SGOT) (BEAKER) 17 U/L 5-34 Specimen slightly (test code = 353) hemolyzed ALT (SGPT) (BEAKER) 18 U/L 6-55 Specimen slightly (test code = 347) hemolyzed CBC W/PLT COUNT & AUTO [id number] 02:44:00 Test Item Value Reference Range Interpretation Comments WHITE BLOOD CELL COUNT (BEAKER) 21.5 K/ L 3.5-10.5 H (test code = 775) RED BLOOD CELL COUNT (BEAKER) 4.77 M/ L 4.63-6.08 (test code = 761) HEMOGLOBIN (BEAKER) (test code = 14.6 GM/DL 13.7-17.5 410) HEMATOCRIT (BEAKER) (test code = 43.1 % 40.1-51.0 411) MEAN CORPUSCULAR VOLUME (BEAKER) 90.4 fL 79.0-92.2 (test code = 753) MEAN CORPUSCULAR HEMOGLOBIN 30.6 pg 25.7-32.2 (BEAKER) (test code = 751) MEAN CORPUSCULAR HEMOGLOBIN CONC 33.9 GM/DL 32.3-36.5 (BEAKER) (test code = 752) RED CELL DISTRIBUTION WIDTH 11.9 % 11.6-14.4 (BEAKER) (test code = 412) PLATELET COUNT (BEAKER) (test 320 K/CU MM 150-450 code = 756) MEAN PLATELET VOLUME (BEAKER) 9.3 fL 9.4-12.4 L (test code = 754) NUCLEATED RED BLOOD CELLS 0 /100 WBC 0-0 (BEAKER) (test code = 413) NEUTROPHILS RELATIVE PERCENT 89 % (BEAKER) (test code = 429) LYMPHOCYTES RELATIVE PERCENT 7 % (BEAKER) (test code = 430) MONOCYTES RELATIVE PERCENT 4 % (BEAKER) (test code = 431) EOSINOPHILS RELATIVE PERCENT 0 % (BEAKER) (test code = 432) BASOPHILS RELATIVE PERCENT 0 % (BEAKER) (test code = 437) NEUTROPHILS ABSOLUTE COUNT 19.06 K/ L 1.78-5.38 H (BEAKER) (test code = 670) LYMPHOCYTES ABSOLUTE COUNT 1.45 K/ L 1.32-3.57 (BEAKER) (test code = 414) MONOCYTES ABSOLUTE COUNT (BEAKER) 0.76 K/ L 0.30-0.82 (test code = 415) EOSINOPHILS ABSOLUTE COUNT 0.00 K/ L 0.04-0.54 L (BEAKER) (test code = 416) BASOPHILS ABSOLUTE COUNT (BEAKER) 0.02 K/ L 0.01-0.08 (test code = 417) IMMATURE GRANULOCYTES-RELATIVE 1 % 0-1 PERCENT (BEAKER) (test code = 2801) MR, BRAIN, [id number] 19:34:00Stealth sequenceFINAL REPORT MRI Brain with and without contrast Stealth protocol 07/23/2018 7:27 PM CLINICAL HISTORY: frontal lobe mass TECHNIQUE: Multiplanar, multisequence MR imaging of the brain was performed, utilizing the following imaging sequences: Axial T1, T2, FLAIR, GRE, DWI/ADC; sagittal T1; postcontrast axial, sagittal, and coronal T1. Thin section axial T2 FLAIR and pre and postcontrast T1 3-D FFE imaging sequences were obtained for intraoperative neuronavigational purposes. COMPARISON: None available. 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 There is compressive edema in the adjacent anterior frontal lobes. An adjacent 3.7 cm cerebrospinal fluid signal intensity quinn ection within and/or underlying the anteroinferior right frontal lobe exerts mass effect on the optic chiasm, prechiasmatic right optic nerve, bilateral post chiasmatic optic pathways, and hypothalamus. There is no infarct, hematoma, hydrocephalus, or extra-axial collection. Normal appearing flow-voids are present in the major intracranial vascular structures. The pituitary and pineal glands are unremarkable. The craniocervical junction is unremarkable. The orbits, face, and skull base are without worrisome finding. IMPRESSION: 1. 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 2. Adjacent entrapped CSF causing mass effect on the intracranial optic apparatus and hypothalamus. Signed: Cl Cid Verified Date/Time: 07/23/2018 19:34:39 Reading Location: [facility] Radiology Reading Room RAPID DRUG SCREEN, [id number] 13:43:00 Test Item Value Reference Range Interpretation Comments BARBITURATE URINE (BEAKER) (test Negative Negative code = 725) BENZODIAZEPINE SCREEN URINE (BEAKER) Negative Negative (test code = 726) COCAINE (METAB.) SCREEN (BEAKER) Negative Negative (test code = 1164) METHADONE SCREEN (BEAKER) (test code Negative Negative = 1436) OPIATE SCREEN URINE (BEAKER) (test Negative Negative code = 734) CANNABINOID SCREEN URINE (BEAKER) Negative Negative (test code = 727) AMPH/METHAMPH SCREEN (BEAKER) (test Negative Negative code = 1438) PHENCYCLIDINE SCREEN URINE (BEAKER) Negative Negative (test code = 608) OXYCODONE SCREEN URINE (BEAKER) Negative Negative (test code = 2761) DRUG CUTOFF CONC.Cocaine 300 ng/mL Cannabinoid 50 ng/mL Benzodiazepine 200 ng/mLBarbiturate 200 ng/mLPhencyclidine 25 ng/mLOpiate 300 ng/mLMethadone 300 ng/mLAmphetamine/ 1000 ng/mL MethamphetamineOxycodone 300 ng/mLThis assay provides an unconfirmed qualitative test result for the clinical management of patients in emergency situations. Chain of custody not maintained. Some ldjm-roi-tgyowje medications, as well as adulterants, may cause inaccurate results. Clinical correlation should be applied. A more comprehensive drug screen or confirmation of a detected drug may be performed upon request.T4, [id number] 03:54:00 Test Item Value Reference Range Interpretation Comments FREE T4 (BEAKER) (test code = 655) 0.93 ng/dL 0.70-1.48 TSH/FREE T4 IF [id number] 02:59:00 Test Item Value Reference Range Interpretation Comments THYROID STIMULATING HORMONE 0.30 uIU/mL 0.35-4.94 L (BEAKER) (test code = 772) CREATINE KINASE (CK), TOTAL AND [id number] 02:44:00 Test Item Value Reference Range Interpretation Comments CREATINE KINASE TOTAL (BEAKER) 96 U/L 29-200 (test code = 380) CREATINE KINASE-MB (BEAKER) (test 1.0 ng/mL 0.0-6.6 code = 750) CREATINE KINASE-MB INDEX (BEAKER) 1.0 % (test code = 395) CK-MB Reference Range:<6.7 Normal6.7-10.0 Borderline>10.0 AbnormalTROPONIN [id number] 02:44:00 Test Item Value Reference Range Interpretation Comments TROPONIN I (BEAKER) (test code = 0.02 ng/mL 0.00-0.03 397) Troponin I (TnI) levels must be interpreted in the context of the presenting symptoms and the clinical findings. Elevated TnI levels indicate myocardial damage, but are not specific for ischemic heart disease. Elevated TnI levels are seen in patients with other cardiac conditions (including myocarditis and congestive heart failure), and slight TnI elevations occur in patients with other conditions, including sepsis, renal failure, acidosis, acute neurological disease, and persistent tachyarrhythmia.[id number] 02:38:00 Test Item Value Reference Range Interpretation Comments PHOSPHORUS (BEAKER) (test code = 2.5 mg/dL 2.3-4.7 604) [id number] 02:38:00 Test Item Value Reference Range Interpretation Comments MAGNESIUM (BEAKER) (test code = 2.0 mg/dL 1.6-2.6 627) BASIC METABOLIC [id number] 02:38:00 Test Item Value Reference Range Interpretation Comments SODIUM (BEAKER) 140 meq/L 136-145 (test code = 381) POTASSIUM (BEAKER) 4.3 meq/L 3.5-5.1 (test code = 379) CHLORIDE (BEAKER) 105 meq/L 98-107 (test code = 382) CO2 (BEAKER) (test 24 meq/L 22-29 code = 355) BLOOD UREA NITROGEN 11 mg/dL 7-21 (BEAKER) (test code = 354) CREATININE (BEAKER) 0.82 mg/dL 0.57-1.25 (test code = 358) GLUCOSE RANDOM 152 mg/dL 70-105 H (BEAKER) (test code = 652) CALCIUM (BEAKER) 9.3 mg/dL 8.4-10.2 (test code = 697) EGFR (BEAKER) (test 107 mL/min/1.73 ESTIM ATED GFR IS code = 1092) sq m NOT ACCURATE CREATININE CLEARANCE IN PREDICTING GLOMERULAR FILTRATION RATE . ESTIMATED GFR I S NOT APPLICABLE FOR DIALYSIS PATIEN TS. LIPID [id number] 02:38:00 Test Item Value Reference Range Interpretation Comments TRIGLYCERIDES (BEAKER) (test code = 75 mg/dL 540) CHOLESTEROL (BEAKER) (test code = 201 mg/dL 631) HDL CHOLESTEROL (BEAKER) (test code 42 mg/dL = 976) LDL CHOLESTEROL CALCULATED (BEAKER) 144 mg/dL (test code = 633) Triglyceride Reference Range: Low Risk <150 Borderline 150-199 High Risk 200-499 Very High Risk >=500Cholesterol Reference Range: Low Risk <200 Borderline 200-239 High Risk >240HDL Cholesterol Reference Range: Low Risk >=60 High Risk <40LDL Cholesterol Reference Range: Optimal <100 Near Optimal 100-129 Borderline 130-159 High 160-189 Very High >=190HEPATIC FUNCTION [id number] 02:38:00 Test Item Value Reference Range Interpretation Comments TOTAL PROTEIN (BEAKER) (test code = 6.9 gm/dL 6.0-8.3 770) ALBUMIN (BEAKER) (test code = 1145) 4.1 g/dL 3.5-5.0 BILIRUBIN TOTAL (BEAKER) (test code 0.4 mg/dL 0.2-1.2 = 377) BILIRUBIN DIRECT (BEAKER) (test 0.2 mg/dL 0.1-0.5 code = 706) ALKALINE PHOSPHATASE (BEAKER) (test 62 U/L 40-150 code = 346) AST (SGOT) (BEAKER) (test code = 15 U/L 5-34 353) ALT (SGPT) (BEAKER) (test code = 20 U/L 6-55 347) C-REACTIVE [id number] 02:38:00 Test Item Value Reference Range Interpretation Comments C-REACTIVE PROTEIN (BEAKER) (test 0.11 mg/dL 0.00-0.50 code = 676) CBC W/PLT COUNT & AUTO [id number] 02:33:00 Test Item Value Reference Range Interpretation Comments WHITE BLOOD CELL COUNT (BEAKER) 12.9 K/ L 3.5-10.5 H (test code = 775) RED BLOOD CELL COUNT (BEAKER) 4.72 M/ L 4.63-6.08 (test code = 761) HEMOGLOBIN (BEAKER) (test code = 14.3 GM/DL 13.7-17.5 410) HEMATOCRIT (BEAKER) (test code = 41.7 % 40.1-51.0 411) MEAN CORPUSCULAR VOLUME (BEAKER) 88.3 fL 79.0-92.2 (test code = 753) MEAN CORPUSCULAR HEMOGLOBIN 30.3 pg 25.7-32.2 (BEAKER) (test code = 751) MEAN CORPUSCULAR HEMOGLOBIN CONC 34.3 GM/DL 32.3-36.5 (BEAKER) (test code = 752) RED CELL DISTRIBUTION WIDTH 11.7 % 11.6-14.4 (BEAKER) (test code = 412) PLATELET COUNT (BEAKER) (test 303 K/CU MM 150-450 code = 756) MEAN PLATELET VOLUME (BEAKER) 9.1 fL 9.4-12.4 L (test code = 754) NUCLEATED RED BLOOD CELLS 0 /100 WBC 0-0 (BEAKER) (test code = 413) NEUTROPHILS RELATIVE PERCENT 89 % (BEAKER) (test code = 429) LYMPHOCYTES RELATIVE PERCENT 9 % (BEAKER) (test code = 430) MONOCYTES RELATIVE PERCENT 2 % (BEAKER) (test code = 431) EOSINOPHILS RELATIVE PERCENT 0 % (BEAKER) (test code = 432) BASOPHILS RELATIVE PERCENT 0 % (BEAKER) (test code = 437) NEUTROPHILS ABSOLUTE COUNT 11.40 K/ L 1.78-5.38 H (BEAKER) (test code = 670) LYMPHOCYTES ABSOLUTE COUNT 1.20 K/ L 1.32-3.57 L (BEAKER) (test code = 414) MONOCYTES ABSOLUTE COUNT (BEAKER) 0.25 K/ L 0.30-0.82 L (test code = 415) EOSINOPHILS ABSOLUTE COUNT 0.00 K/ L 0.04-0.54 L (BEAKER) (test code = 416) BASOPHILS ABSOLUTE COUNT (BEAKER) 0.00 K/ L 0.01-0.08 L (test code = 417) IMMATURE GRANULOCYTES-RELATIVE 0 % 0-1 PERCENT (BEAKER) (test code = 2801)
[2022-02-05 16:55] LABS: Absolute Lymphocytes (CBC) 2.2 K/uL (0.7-4.9); Hematocrit 46.2 % (39.6-49.0); Lymphocytes % 25.5 % (15.3-44.8)
--- NOTE | 2022-02-05 17:15 | RAD REPORT ---
EXAM DESCRIPTION: CT - Head Brain Wo Cont - 02/05/2022 5:05 pm CLINICAL HISTORY: HEADACHE COMPARISON: Head Brain Wo Cont dated 07/22/2018 TECHNIQUE: All CT scans are performed using dose optimization technique as appropriate and may inclu de automated exposure control or mA/KV adjustment according to patient size. FINDINGS: No intracranial hemorrhage, hydrocephalus or extra-axial fluid collection.No areas of brai n edema or evidence of midline shift. Postsurgical changes are seen in the frontal region. Both maxillary antra and anterior ethmoid air cells appear opacified. Right-sided craniotomy changes are present. IMPRESSION: No acute intracranial abnormality. Significant maxillary sinus anterior ethmoid air cell sinus disease.
[2022-02-05] MEDS ORDERED: dexAMETHasone 10 MG/ML VIAL ONE (17:24)
[2022-02-05] MEDS ORDERED: NA CHLORIDE 0.9% 500 ML ONE (17:24)
[2022-02-05] MEDS ORDERED: METOCLOPRAMIDE 10 MG/2mL INJ ONE (17:29)
--- NOTE | 2022-02-05 19:08 | ER ---
Nurse's Notes [facility] Name: Sammy Ibarra Age: 41 yrs Sex: Male : 1980 Arrival Date: 02/05/2022 Time: 14:52 Bed 18 Private MD: Diagnosis: Headache Presentation: 02/05 15:01 Chief complaint: Patient states: "I have a migraine that is causing blurry vision in ab2 the right eye that has been intermittent for 2 months. Last time I was here they found a mass in my brain that I had to have removed, it was non-cancerous. I just didn't want to wait too long and something serious be wrong.". Coronavirus screen: Vaccine status: Patient reports being unvaccinated. Client denies travel out of the [place] in the last 14 days. At this time, the client does not indicate any symptoms associated with coronavirus-19. Ebola Screen: Patient negative for fever greater than or equal to 101.5 degrees Fahrenheit, and additional compatible Ebola Virus Disease symptoms Patient denies exposure to infectious person. Patient denies travel to an Ebola-affected area in the 21 days before illness onset. No symptoms or risks identified at this time. Initial Sepsis Screen: Does the patient meet any 2 criteria? No. Patient's initial sepsis screen is negative. Does the patient have a suspected source of infection? No. Patient's initial sepsis screen is negative. Risk Assessment: Do you want to hurt yourself or someone else? Patient reports no desire to harm self or others. Onset of symptoms is unknown. 15:01 Method Of Arrival: Ambulatory ab2 15:01 Acuity: MARCELLA 3 ab2 Triage Assessment: 15:05 Headache History: The patient has had previous headaches and this one is similar to ab2 previous episodes, and this one is less severe than previous episodes. General: Appears in no apparent distress. comfortable, Behavior is calm, cooperative, appropriate for age. Pain: Pain currently is 5 out of 10 on a pain scale. Pain began intermittently for 2 months Also complains of Blurry vision in right eye. EENT: Reports blurred vision. Neuro: Level of Consciousness is awake, alert, obeys commands, Oriented to person, place, time, situation, Appropriate for age Reports blurred vision headache. Historical: - Allergies: 15:04 No Known Allergies; ab2 - Home Meds: 15:04 None [Active]; ab2 - PMHx: 15:04 None; ab2 - PSHx: 15:04 Mass removed from brain; ab2 - Immunization history:: Adult Immunizations up to date. - Social history:: Smoking status: Reported history of juuling and/or vaping. Screenin:15 Abuse screen: Denies threats or abuse. Denies injuries from another. Nutritional eo2 screening: No deficits noted. Tuberculosis screening: No symptoms or risk factors identified. Fall Risk None identified. Assessment: 17:33 General: Appears in no apparent distress. comfortable, Behavior is calm, cooperative. eo2 Pain: Complains of pain in right side of forehead and right adventism. Neuro: Level of Consciousness is awake, alert, obeys commands, Oriented to person, place, time, situation, Reports headache. Cardiovascular: No deficits noted. Denies chest pain, shortness of breath. Respiratory: No deficits noted. Airway is patent Trachea midline Respiratory effort is even, unlabored, Respiratory pattern is regular, symmetrical, Breath sounds are clear bilaterally. GI: No deficits noted. No signs and/or symptoms were reported involving the gastrointestinal system. Vital Signs: 15:01 BP 138 / 83; Pulse 73; Resp 18; Temp 99.0(TE); Pulse Ox 97% ; Weight 90.72 kg; Height 5 ab2 ft. 7 in. (170.18 cm); Pain 5/10; 16:49 BP 122 / 71; Pulse 65; Resp 18; Pulse Ox 100% ; Height 5 ft. 7 in. (170.18 cm); mb7 17:15 BP 142 / 82; Pulse 61; Resp 17; Pulse Ox 99% ; Pain 6/10; eo2 18:00 BP 106 / 69; Pulse 60; Resp 15; Pulse Ox 99% ; eo2 18:51 BP 128 / 73; Pulse 61; Resp 15; Pulse Ox 99% ; Pain 0/10; eo2 16:49 Body Mass Index 31.32 (90.72 kg, 170.18 cm) mb7 ED Course: 14:52 Patient arrived in ED. ds1 15:04 Triage completed. ab2 15:06 Arm band placed on right wrist. ab2 16:13 Danilo Barker PA is PHCP. [facility] 16:13 Lizbeth Larsen MD is Attending Physician. [facility] 16:17 Janeth Brice, GUMARO is Primary Nurse. eo2 16:45 Inserted saline lock: 20 gauge in right antecubital area, using aseptic technique. mb7 17:05 CT Head Brain wo Cont In Process Unspecified. EDMS 17:15 Patient has correct armband on for positive identification. Pulse ox on. NIBP on. eo2 17:15 No provider procedures requiring assistance completed. eo2 19:07 Davy Rodriguez MD is Referral Physician. [facility] 19:07 Report given to Sherrill NAIK. eo2 19:30 IV discontinued, intact, bleeding controlled, No redness/swelling at site. Pressure kd3 dressing applied. Administered Medications: 17:32 Drug: NS 0.9% 500 ml Route: IV; Rate: bolus; Site: right antecubital; eo2 18:51 Follow up: Response: No adverse reaction; IV Status: Completed infusion; IV Intake: eo2 500ml 17:32 Drug: Reglan (metoCLOPramide) 20 mg Route: IVP; Site: right antecubital; eo2 18:52 Follow up: Response: No adverse reaction eo2 17:32 Drug: Decadron - Dexamethasone 10 mg Route: IVP; Site: right antecubital; eo2 18:52 Follow up: Response: No adverse reaction eo2 Intake: 18:51 IV: 500ml; Total: 500ml. eo2 Outcome: 19:07 Discharge ordered by . [facility] 19:30 Discharged to home ambulatory. kd3 19:30 Condition: stable 19:30 Discharge instructions given to patient, Instructed on discharge instructions, follow up and referral plans. Demonstrated understanding of instructions, follow-up care. 19:30 Patient left the ED. kd3 Signatures: Dispatcher [employer] EDMS Danilo Barker PA PA Kelly Manuel ds1 Sherrill Elaine, RN RN kd3 Valerie Smith mb7 Janeth Brice, GUMARO RN eo2 Marlon Barba
--- NOTE | 2022-02-05 19:08 | EDPHYS ---
Physician Documentation [facility] Name: Sammy Ibarra Age: 41 yrs Sex: Male : 1980 Arrival Date: 02/05/2022 Time: 14:52 Bed 18 Private MD: ED Physician Lizbeth Larsen HPI: 02/05 16:26 This 41 yrs old Male presents to ER via Ambulatory with complaints of Headache. jmm 16:26 The patient complains of pain to the right temporal area, right side of forehead, right jmm congregational and right eye. Onset: The symptoms/episode began/occurred gradually, 2 month(s) ago. Associated signs and symptoms: Pertinent negatives: altered mental status, dizziness, fever, malaise, nausea, neck stiffness, paresthesias, Photophobia rash, sinus congestion, sinus tenderness, vision changes, vision loss, vomiting, weakness. Headache History: The patient has had previous headaches and this one is similar to previous episodes. The symptoms are alleviated by nothing. the symptoms are aggravated by nothing. Is a 41-year-old male with a history of of craniotomy the presents emerged part with complaints of progressively worsening headache for the past 2 months. Patient states having some concerns that he may have developed another mass. Denies fever.. Historical: - Allergies: 15:04 No Known Allergies; ab2 - Home Meds: 15:04 None [Active]; ab2 - PMHx: 15:04 None; ab2 - PSHx: 15:04 Mass removed from brain; ab2 - Immunization history:: Adult Immunizations up to date. - Social history:: Smoking status: Reported history of juuling and/or vaping. ROS: 16:26 Constitutional: Negative for fever, chills, and weight loss, Cardiovascular: Negative jmm for chest pain, palpitations, and edema, Respiratory: Negative for shortness of breath, cough, wheezing, and pleuritic chest pain. 16:26 Neuro: Positive for headache. 16:26 All other systems are negative. Exam: 16:26 Constitutional: This is a well developed, well nourished patient who is awake, alert, jmm and in no acute distress. Head/Face: atraumatic. Eyes: EOMI, no conjunctival erythema appreciated ENT: Moist Mucus Membranes Neck: Trachea midline, Supple Chest/axilla: Normal chest wall appearance and motion. Cardiovascular: Regular rate and rhythm. No edema appreciated Respiratory: Normal respirations, no respiratory distress appreciated Abdomen/GI: Non distended, soft Back: Normal ROM Skin: General appearance color normal MS/ Extremity: Moves all extremities, no obvious deformities appreciated, no edema noted to the lower extremities Neuro: Awake and alert Psych: Behavior is normal, Mood is normal, Patient is cooperative and pleasant Vital Signs: 15:01 BP 138 / 83; Pulse 73; Resp 18; Temp 99.0(TE); Pulse Ox 97% ; Weight 90.72 kg; Height 5 ab2 ft. 7 in. (170.18 cm); Pain 5/10; 16:49 BP 122 / 71; Pulse 65; Resp 18; Pulse Ox 100% ; Height 5 ft. 7 in. (170.18 cm); mb7 17:15 BP 142 / 82; Pulse 61; Resp 17; Pulse Ox 99% ; Pain 6/10; eo2 18:00 BP 106 / 69; Pulse 60; Resp 15; Pulse Ox 99% ; eo2 18:51 BP 128 / 73; Pulse 61; Resp 15; Pulse Ox 99% ; Pain 0/10; eo2 16:49 Body Mass Index 31.32 (90.72 kg, 170.18 cm) 7 MDM: 16:26 Patient medically screened. [facility] 19:06 Data reviewed: vital signs, nurses notes. Counseling: I had a detailed discussion with barbara the patient and/or guardian regarding: the historical points, exam findings, and any diagnostic results supporting the discharge/admit diagnosis, lab results, radiology results, the need for outpatient follow up, to return to the emergency department if symptoms worsen or persist or if there are any questions or concerns that arise at home. ED course: Headache is relieved in the ED. Patient advised follow-up with neurology for further evaluation otherwise given strict return precautions. Patient understood agrees plan of care.. 03 16:31 Order name: CBC with Diff; Complete Time: 17:08 [facility] 02/05 16:31 Order name: BMP; Complete Time: 17:08 [facility] 02/05 16:31 Order name: CT Head Brain wo Cont; Complete Time: 17:16 [facility] 02/05 16:31 Order name: Saline Lock; Complete Time: 16:45 [facility] Administered Medications: 17:32 Drug: NS 0.9% 500 ml Route: IV; Rate: bolus; Site: right antecubital; eo2 18:51 Follow up: Response: No adverse reaction; IV Status: Completed infusion; IV Intake: eo2 500ml 17:32 Drug: Reglan (metoCLOPramide) 20 mg Route: IVP; Site: right antecubital; eo2 18:52 Follow up: Response: No adverse reaction eo2 17:32 Drug: Decadron - Dexamethasone 10 mg Route: IVP; Site: right antecubital; eo2 18:52 Follow up: Response: No adverse reaction eo2 Disposition Summary: 02/05/22 19:07 Discharge Ordered Location: Home [facility] Condition: Stable [facility] Diagnosis - Headache [facility] Followup: [facility] - With: Davy Rodriguez MD - When: 2 - 3 days - Reason: Recheck today's complaints, Continuance of care, Re-evaluation by your physician Discharge Instructions: - Discharge Summary Sheet [facility] - Migraine Headache [facility] Forms: - Medication Reconciliation Form [facility] - Thank You Letter [facility] - Antibiotic Education [facility] - Prescription Opioid Use [facility] Signatures: Dispatcher [employer] Danilo Riojas PA PA jmm Janeth Brice, RN RN eo2 Marlon Barba ab2
[2022-02-05 19:45] VITALS: TEMP 99
[2022-02-05 19:48] VITALS: O2SAT 99
[2022-02-05 19:51] VITALS: BP 128/73
== END 2022-02-05 19:30 | disposition home or self-care (01) ==
LOC: ER 14:50
DX: R51.9 Headache, unspecified (principal)
CPT/HCPCS: 36415; 70450; 80048; 85025; 96361; 96374; 96375; 99284; J1100; J2765; J7040

== ENCOUNTER 2022-07-29 11:25 | Emergency (ER) | payer SELFPAY ==
--- OUTSIDE RECORDS SUMMARY | 2022-07-29 11:29 | XMS REPORT | Continuity of Care Document ---
:1980 Author Organization [facility] t Address [address] [place] [address] Care Team Providers Name Role Phone CARRI BERGER Attending Clinician Unavailable ACRRI BERGER Admitting Clinician Unavailable Problems Condition Condition Condition Status Onset Resolution Last Treating Co mments Source Name Details Category Date Date Treatment Clinician Date Brain Brain Disease [facility] Headache [facility] Disease [facility] Numbness [facility]umbness Disease [facility] tingling tingling [facility] of right of right 00 Center arm and arm and leg leg Cerebral Cerebral Disease [facility] Allergies, Adverse Reactions, Alerts This patient has no known allergies or adverse reactions. Social History Social Habit Start Date Stop Date Quantity Comments Source Tobacco Comment 2018-07-27 2018-07-27 smoked [address] [facility] 00:00:00 00:00:00 ago,smokes when Medical C enter he drinks Sex Assigned At [birth year] [facility] Smoking Status Start Date Stop Date Source Current some day smoker 2018-07-27 00:00:00 [facility] Medications Ordered Filled Start Stop Current Ordering Indication Dosage Frequency Signature Comments Components Source Medication Medication Date Date Medication? Clinician (SIG) Name Name pantoprazol Yes 40mg QD Take [address] [facility] 08-03 tablet (40 [facility] (PROTONIX) 00:00: mg total) Me dical 40 MG 00 by mouth Center tablet daily. dexamethaso 2017-0 Yes [facility] (DECADRON) 00:00: 4mg Medical 2 MG tablet 00 tablets, Cent er take one 2mg tablet every 12 hours for 2 days followed by 2mg tablet daily.. dexamethaso 2017-0 Yes Take one [facility] 08[facility]02 4mg tablet [facility] (DECADRON) 00:00: every 8 Medi nelli 4 MG tablet [address] 1 dayTake one 4mg tablet every 12 hours for 2 days. Procedures This patient has no known procedures. Results Test Description Test Time Test Comments Results Result [facility] Comments MR, BRAIN, WITH 2019-01-16 FINAL REPORT PATIENT ID: 14:30:00 [id number] MRI Brain with and without contrast Clinical [...] MDReport Verified Date/Time: 01/16/2019 14:30:21 Reading Location: [facility] C013V Neuro Reading Room T-LATENCY 2018-08-08 Reason for INTRAOPERATIVE MONITORING SPE, ALL LIMBS 14:25:00 exam:->Brain REPORT Patient Name: Tumor Sammy Ibarra [facility] Surgery Date: 07/31/2018 [place] [facility] S/N: [id number] Monitoring began at 08:46 and ended at [...] EXAM 2018-08-07 Surgical Pathology Report 13:51:00 Case: [id number] Authorizing Provider: Dc Larsen MD Collected: 07/31/2018 1131 Ordering Location: [facility] PERIOPERATIVE Received: 07/31/2018 1135 SERVICES Pathologist: Marcelo Gordon MD Specimens: A) - Brain, Right, Brain Tumor B) - Brain, Right, Brain Tumor A. 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 The MIB-1 proliferation index is variable, but overall is 2.4%.[id number] in tumorA. Brain; B. Right brain tumorA. [...] developed and its performance characteristics determined by [facility], Pathology Laboratory. It has not been cleared [...] = 413) 0 /100 WBC 0 -0 [id number] 09:24:00 Test Item Value Reference Range Interpretation [...] Received comment: User comments: Slide comments:BASIC METABOLIC [id number] 05:52:00 Test Item Value Reference Range Interpretation [...] NOT APPLICABLE FOR DIALYSIS PATIEN TS. POCT-GLUCOSE [id number] 18:00:00 Test Item Value Reference Range Interpretation Comments POC-GLUCOSE METER 103 mg/dL 70-110 TESTED AT [place] [address] ([facility] (test code = [place] [place] [address]) [id number] POCT-GLUCOSE [id number] 13:04:00 Test Item Value Reference Range Interpretation Comments POC-GLUCOSE METER 74 mg/dL 70-110 TESTED AT [place] [address] ([facility] (test code = REJI Ibarra [facility] [address]38) CBC W/PLT COUNT & AUTO [id number] 07:57:00 Test Item Value Reference Range Interpretation [...] (test code = Normal 486) MR, BRAIN, [id number] 05:38:00FINAL REPORT MRI Brain with and without contrast Clinical History: Neoplasm - [employer]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 discharge pending MRI Technique: MRI of the brain utiliz ing axial T1, T2, FLAIR, GRE, DWI, sagittal [...] however continued attention on follow-up is recommended. Unchanged edema within the bilateral frontal lobes. Improved mass effect on the adjacent parenchyma. Small amount of extra-axial fluid and gas along the craniotomy defect. An seen is the fluid collection underlying the anterior inferior right frontal lobe with mass effect on the optic chiasm, prechiasmatic right optic nerve and bilateral postchiasmatic optic pathways which may representan arachnoid cyst. Ventricles are normal in size and configuration. No midline shift or mass effect.The craniocervical junction is preserved. The major intracranial [...] which is favored be postsurgical however continued attentionon follow-up is recommended. Signed: Earl Mello Verified Date/Time: 08/01/2018 05:38:42 Reading Location: [address] Reading Room PHOSPHORUS 2018-08-01 03:38:00 Test Item Value Reference Range Interpretation Comments PHOSPHORUS (BEAKER) (test code = 4.7 mg/dL 2.3-4.7 604) [id number] 03:38:00 Test Item Value Reference Range Interpretation Comments MAGNESIUM (BEAKER) (test code = 2.2 mg/dL 1.6-2.6 627) BASIC METABOLIC [id number] 03:38:00 Test Item Value Reference Range Interpretation [...] PATIEN TS. CBC W/PLT COUNT & AUTO [id number] 13:41:00 Test Item Value Reference Range Interpretation [...] Received comment: User comments: Slide comments:BASIC METABOLIC [id number] 07:15:00 Test Item Value Reference Range Interpretation [...] NOT APPLICABLE FOR DIALYSIS PATIEN TS. PROTHROMBIN TIME/[id number] 11:56:00 Test Item Value Reference Range Interpretation Comments PROTIME (BEAKER) (test code = 14.1 seconds 11.7-14.7 759) INR (BEAKER) (test code = 370) 1.1 <=5.9 RECOMMENDED COUMADIN/WARFARIN INR THERAPY RANGESSTANDARD DOSE: 2.0 - 3.0 Includes: PROPHYLAXIS for venous thrombosis, systemic embolization; TREATMENT for venous thrombosis and/or pulmonary embolus.HIGH RISK: Target INR is 2.5-3.5 for patients with mechanical heart valves.CBC W/PLT COUNT & AUTO [id number] 10:52:00 Test Item Value Reference Range Interpretation [...] Received comment: User comments: Slide comments:BASIC METABOLIC [id number] 06:31:00 Test Item Value Reference Range Interpretation [...] APPLICABLE FOR DIALYSIS PATIEN TS. BASIC METABOLIC [id number] 06:37:00 Test Item Value Reference Range Interpretation Comments SODIUM (BEAKER) 137 meq/L 136-145 (test code = 381) POTASSIUM (BEAKER) 4.3 meq/L 3.5-5.1 (test code = 379) CHLORIDE (BEAKER) 102 meq/L 98-107 (test code = 382) CO2 (BEAKER) (test 26 meq/L 22-29 code = 355) BLOOD UREA [...] PATIEN TS. CBC W/PLT COUNT & AUTO [id number] 06:35:00 Test Item Value Reference Range Interpretation [...] H PERCENT (BEAKER) (test code = 2801) [id number] 06:40:00 Test Item Value Reference Range Interpretation Comments PHOSPHORUS (BEAKER) (test code = 3.4 mg/dL 2.3-4.7 604) [id number] 06:40:00 Test Item Value Reference Range Interpretation Comments MAGNESIUM (BEAKER) (test code = 2.1 mg/dL 1.6-2.6 627) BASIC METABOLIC [id number] 06:40:00 Test Item Value Reference Range Interpretation [...] APPLICABLE FOR DIALYSIS PATIEN TS. HEPATIC FUNCTION [id number] 06:40:00 Test Item Value Reference Range Interpretation [...] 6-55 347) CBC W/PLT COUNT & AUTO [id number] 06:24:00 Test Item Value Reference Range Interpretation [...] 0-1 PERCENT (BEAKER) (test code = 2801) [id number] 17:29:00 Test Item Value Reference Range Interpretation Comments PARTIAL THROMBOPLASTIN TIME 25.7 seconds 22.5-36.0 (BEAKER) (test code = 760) PROTHROMBIN [id number] 17:28:00 Test Item Value Reference Range Interpretation Comments PROTIME (BEAKER) (test code = 13.4 seconds 11.7-14.7 759) INR (BEAKER) (test code = 370) 1.0 <=5.9 RECOMMENDED COUMADIN/WARFARIN INR THERAPY RANGESSTANDARD DOSE: 2.0 - 3.0 Includes: PROPHYLAXIS for venous thrombosis, systemic embolization; TREATMENT for venous thrombosis and/or pulmonary embolus.HIGH RISK: Target INR is 2.5-3.5 for patients with mechanical heart valves.EEG AWAKE AND [id number] 14:51:00Reason for exam:->Possible seizureShould this be performed at the bedside?->YesDate(s) of EE07/24/2018 DATE OF REPORT: 07/24/2018 ACC: [id number] EEG Number: [id number] Start time: 12:15 pm Stop time: 12:57 pm ICD-10: R56.9 CPT Code: 90991 HISTORY: 37 year old male admitted for headache and right- sided numbness 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 MEDICATIONS THAT COULD AFFECTEEG: Dexamethasone, Benadryl TECHNICAL SUMMARY: This is a digital video- EEG recorded with 32 input channels reviewed with bipolar and referential montages using the modified combinatorial system nomenclature. DESCRIPTION OF RECORD: During the maximally alert state, up to a 9 Hz posterior dominant rhythm was seen that was symmetric, reactive to eye opening and well regulated. More anteriorly, low voltage frontocentral beta predominated. Drowsiness was characterized by alpha attenuation and increased frontocentral theta. Stage 2 sleep including symmetric sleep spindles were seen. No seizures were recorded. SIGNIFICANT VIDEO EVENTS: None SIGNIFICANT ELECTROCARDIOGRAM EVENTS: None HV: Hyperventilationwas not performed PHOTIC STIMULATION: Photic stimulation was done from 1-33 Hz; no photic driving was seen; photoparoxysmal responses were absent. IMPRESSION: Normal Awake and Asleep EEG. CLINICAL CORRELATION: An EEG without epileptiform discharges does not exclude the possibility of epilepsy. If the clinical suspicion of epilepsy remains, consider additional EEG recordings. Adeline Turner MD PGY-4 Resident [facility] Neurology Samantha Huynh MD Clinical Neurophysiology Attending [id number] 03:01:00 Test Item Value Reference Range Interpretation Comments MAGNESIUM (BEAKER) 2.4 mg/dL 1.6-2.6 Specimen slightly (test code = 627) hemolyzed [id number] 03:01:00 Test Item Value Reference Range Interpretation Comments PHOSPHORUS (BEAKER) 2.1 mg/dL 2.3-4.7 L Specimen slightly (test code = 604) hemolyzed BASIC METABOLIC [id number] 03:01:00 Test Item Value Reference Range Interpretation [...] APPLICABLE FOR DIALYSIS PATIEN TS. HEPATIC FUNCTION [id number] 03:01:00 Test Item Value Reference Range Interpretation [...] 347) hemolyzed CBC W/PLT COUNT & AUTO [id number] 02:44:00 Test Item Value Reference Range Interpretation [...] (BEAKER) (test code = 2801) MR, BRAIN, [id number] 19:34:00Stealth sequenceFINAL REPORT MRI Brain with and without contrast [facility] protocol 07/23/2018 7:27 PM CLINICAL HISTORY: frontal [...] adjacent 3.7 cm cerebrospinal fluid signal intensity collec tion within and/or underlying the anteroinferior right frontal [...] groove meningioma without compressive edema in the bilateralfrontal lobes. 2. Adjacent entrapped CSF causing mass effect on the intracranial optic apparatus andhypothalamus. Signed: Cl Cid Verified Date/Time: 07/23/2018 19:34:39 Reading Location: [facility] Radiology Reading Room RAPID DRUG SCREEN, [id number] 13:43:00 Test Item Value Reference Range Interpretation [...] unconfirmed qualitative test result for the clinical managementof patients in emergency situations. Chain of custody not maintained. Some kzsw-hqb-hnrclwg medications, as well as adulterants, may cause inaccurate results. Clinical correlation should be applied. A more comprehensive drug screen or confirmation of a detected drug may be performed upon request.T4, FREE 2018-07-23 03:54:00 Test Item Value Reference Range Interpretation Comments FREE T4 (BEAKER) (test code = 655) 0.93 ng/dL 0.70-1.48 TSH/FREE T4 IF [id number] 02:59:00 Test Item Value Reference Range Interpretation Comments THYROID STIMULATING HORMONE 0.30 uIU/mL 0.35-4.94 L (BEAKER) (test code = 772) CREATINE KINASE (CK), TOTAL AND [id number] 02:44:00 Test Item Value Reference Range Interpretation Comments CREATINE KINASE TOTAL (BEAKER) 96 U/L 29-200 (test code = 380) CREATINE KINASE-MB (BEAKER) (test 1.0 ng/mL 0.0-6.6 code = 750) CREATINE KINASE-MB INDEX (BEAKER) 1.0 % (test code = 395) CK-MB Reference Range:<6.7 Normal6.7-10.0 Borderline>10.0 AbnormalTROPONIN [id number] 02:44:00 Test Item Value Reference Range Interpretation [...] failure, acidosis, acute neurological disease, and persistent tachyarrhythmia.[id number] 02:38:00 Test Item Value Reference Range Interpretation Comments PHOSPHORUS (BEAKER) (test code = 2.5 mg/dL 2.3-4.7 604) [id number] 02:38:00 Test Item Value Reference Range Interpretation Comments MAGNESIUM (BEAKER) (test code = 2.0 mg/dL 1.6-2.6 627) BASIC METABOLIC [id number] 02:38:00 Test Item Value Reference Range Interpretation [...] NOT APPLICABLE FOR DIALYSIS PATIEN TS. LIPID [id number] 02:38:00 Test Item Value Reference Range Interpretation Comments TRIGLYCERIDES (BEAKER) (test code = 75 mg/dL 540) CHOLESTEROL (BEAKER) (test code = 201 mg/dL 631) HDL CHOLESTEROL (BEAKER) (test code 42 mg/dL = 976) LDL CHOLESTEROL CALCULATED (BEAKER) 144 mg/dL (test code = 633) Triglyceride Reference Range: Low Risk <150 Borderline 150-199 High Risk 200- 499 Very High Risk >=500Cholesterol Reference Range: Low Risk <200 Borderline 200-239 High Risk >240HDL Cholesterol Reference Range: Low Risk >=60 High Risk <40LDL Cholesterol Reference Range: Optimal <100 Near Optimal 100-129 Borderline 130-159 High 160-189 Very High >=190HEPATIC FUNCTION [id number] 02:38:00 Test Item Value Reference Range Interpretation [...] code = 20 U/L 6-55 347) C-REACTIVE [id number] 02:38:00 Test Item Value Reference Range Interpretation Comments C-REACTIVE PROTEIN (BEAKER) (test 0.11 mg/dL 0.00-0.50 code = 676) CBC W/PLT COUNT & AUTO [id number] 02:33:00 Test Item Value Reference Range Interpretation [...]
--- NOTE | 2022-07-29 13:16 | RAD REPORT ---
EXAM DESCRIPTION: RAD - Tib Fib Left - 07/29/2022 1:05 pm CLINICAL HISTORY: PAIN COMPARISON: No comparisons FINDINGS/IMPRESSION: No acute fracture. No malalignment. No significant focal degenerative changes.
--- NOTE | 2022-07-29 13:16 | RAD REPORT ---
EXAM DESCRIPTION: RAD - Ankle Left 3 View - 07/29/2022 1:05 pm CLINICAL HISTORY: PAIN COMPARISON: No comparisons FINDINGS/IMPRESSION: No acute fracture. No malalignment. No significant focal degenerative changes.
--- NOTE | 2022-07-29 13:23 | EDPHYS ---
Physician Documentation [facility] Name: Raffi Ibarra Age: 41 yrs Sex: Male : 1980 Arrival Date: 07/29/2022 Time: : Bed 12 Private MD: ED Physician Arik Yang HPI: 07/29 11:49 This 41 yrs old Male presents to ER via Ambulatory with complaints of Ankle Injury. rn 11:49 The patient presents with decreased range of motion, an injury, pain. The complaints rn affect the left ankle. Onset: The symptoms/episode began/occurred last night. Associated signs and symptoms: Pertinent positives: swelling, Pertinent negatives: fever, weakness. The patient presents with an injury, pain. 11:50 Severity of symptoms: At their worst the symptoms were mild, in the emergency rn department the symptoms are unchanged. The patient has not experienced similar symptoms in the past. The patient has not recently seen a physician. Pt states stepped on rock last night, rolled ankle, hurts lateral ankle and to left of left knee. NO other injury. Reports pain mild. Able to walk.. Historical: - Allergies: 11:34 No Known Allergies; ss - Home Meds: 11:34 None [Active]; ss - PMHx: 11:34 None; ss - PSHx: 11:34 Mass removed from brain; ss - Immunization history:: Client reports having NOT received the Covid vaccine. - Social history:: Smoking status: Patient reports use of chewing tobacco. Reported history of juuling and/or vaping. - Family history:: not pertinent. - Hospitalizations: : No recent hospitalization is reported. ROS: 11:50 Constitutional: Negative for fever, chills, and weight loss, MS/Extremity: + left ankle rn injury and pain Skin: Negative for injury, rash, and discoloration, Neuro: Negative for weakness, numbness, tingling Exam: 11:50 Constitutional: This is a well developed, well nourished patient who is awake, alert, rn and in no acute distress. Ambulatory to room without assistance. MS/ Extremity: Pulses equal, no cyanosis. Neurovascular intact. Full, normal range of motion. + moderate swelling left lateral malleolus and mild tenderness proximal left fibula without deformity or swelling. No open wounds. No tenderness of foot. Vital Signs: 11:32 BP 130 / 74; Pulse 81; Resp 16; Temp 98.4(TE); Pulse Ox 98% on R/A; Weight 83.01 kg; ss Height 5 ft. 7 in. (170.18 cm); Pain 0/10; 11:32 Body Mass Index 28.66 (83.01 kg, 170.18 cm) ss MDM: 11:32 Patient medically screened. rn 13:22 Differential diagnosis: fracture, sprain. Data reviewed: vital signs, nurses notes, rn radiologic studies, plain films, and as a result, I will discharge patient. Counseling: I had a detailed discussion with the patient and/or guardian regarding: the historical points, exam findings, and any diagnostic results supporting the discharge/admit diagnosis, radiology results, the need for outpatient follow up, to return to the emergency department if symptoms worsen or persist or if there are any questions or concerns that arise at home. Response to treatment: There is no appreciated change of the patient's symptoms at this time, and as a result, I will discharge patient. Special discussion: I discussed with the patient/guardian in detail that at this point there is no indication for admission to the hospital. It is understood, however, that if the symptoms persist or worsen the patient needs to return immediately for re-evaluation. 07/29 11:41 Order name: XRAY Ankle LEFT 3 view; Complete Time: 13:22 rn 07/29 11:41 Order name: XRAY Tib Fib LEFT; Complete Time: 13:22 rn Administered Medications: No medications were administered Disposition Summary: 07/29/22 13:23 Discharge Ordered Location: Home rn Problem: new rn Symptoms: have improved rn Condition: Stable rn Diagnosis - Sprain of unspecified ligament of left ankle, initial encounter rn Followup: rn - With: Private Physician - When: As needed - Reason: Recheck today's complaints, Re-evaluation by your physician Discharge Instructions: - Discharge Summary Sheet rn - Ankle Sprain rn Forms: - Medication Reconciliation Form rn - Thank You Letter rn - Antibiotic 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
--- NOTE | 2022-07-29 13:23 | ER ---
Nurse's Notes [facility] Name: Raffi Ibarra Age: 41 yrs Sex: Male : 1980 Arrival Date: 07/29/2022 Time: 11:28 Bed 12 Private MD: Diagnosis: Sprain of unspecified ligament of left ankle, initial encounter Presentation: 07/29 11:32 Chief complaint: Patient states: L ankle pain after rolling ankle yesterday. Pt denies ss pain at this time, but states last night it felt like it was radiating up towards L knee area. Coronavirus screen: Client denies travel out of the [place] in the last 14 days. Ebola Screen: Patient denies exposure to infectious person. Patient denies travel to an Ebola-affected area in the 21 days before illness onset. Initial Sepsis Screen: Does the patient meet any 2 criteria? No. Patient's initial sepsis screen is negative. Does the patient have a suspected source of infection? No. Patient's initial sepsis screen is negative. Risk Assessment: Do you want to hurt yourself or someone else? Patient reports no desire to harm self or others. Onset of symptoms was July 28, 2022. 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 - Social history:: Smoking status: Patient reports use of chewing tobacco. Reported history of juuling and/or vaping. - Family history:: not pertinent. - Hospitalizations: : No recent hospitalization is reported. Screenin:05 Abuse screen: Denies threats or abuse. Denies injuries from another. Nutritional ss screening: No deficits noted. Tuberculosis screening: Never had TB. Fall Risk None identified. Assessment: 13:28 Reassessment: Patient appears in no apparent distress at this time. Patient and/or ss family updated on plan of care and expected duration. Pain level reassessed. Patient is alert, oriented x 3, equal unlabored respirations, skin warm/dry/pink. Vital Signs: 11:32 BP 130 / 74; Pulse 81; Resp 16; Temp 98.4(TE); Pulse Ox 98% on R/A; Weight 83.01 kg; ss Height 5 ft. 7 in. (170.18 cm); Pain 0/10; 11:32 Body Mass Index 28.66 (83.01 kg, 170.18 cm) ss ED Course: 11:28 Patient arrived in ED. as 11:32 Arik Yang MD is Attending Physician. rn 11:33 Triage completed. ss 11:34 Arm band placed on left wrist. ss 12:05 Sandi Lamb, GUMARO is Primary Nurse. ss 12:05 Patient has correct armband on for positive identification. Bed in low position. Call ss light in reach. 13:07 XRAY Ankle LEFT 3 view In Process Unspecified. EDMS 13:07 XRAY Tib Fib LEFT In Process Unspecified. EDMS 13:28 No provider procedures requiring assistance completed. Patient did not have IV access ss during this emergency room visit. Administered Medications: No medications were administered Medication: 13:28 VIS not applicable for this client. ss Outcome: 13:23 Discharge ordered by . rn 13:28 Discharged to home ambulatory, with family. ss 13:28 Condition: good 13:28 Discharge instructions given to patient, Instructed on discharge instructions, follow up and referral plans. Demonstrated understanding of instructions, follow-up care. 13:30 Patient left the ED. ss Signatures: Dispatcher [employer] Valeria Woodward as Arik Yang MD MD rn Smirch, Shelby, RN RN ss
[2022-07-29 13:35] VITALS: BP 130/74; TEMP 98.4; O2SAT 98
[2022-07-29] MEDS ORDERED: MORPHINE 4 MG/ML SYR ONE (15:23)
== END 2022-07-29 13:30 | disposition home or self-care (01) ==
LOC: ER 11:25
DX: S93.402A Sprain of unspecified ligament of left ankle, initial encounter (principal)
CPT/HCPCS: 99283